=== PATIENT | female | born 1955 | race Caucasian/White ===

== ENCOUNTER → 2024-07-26 | Outpatient (CLI) | payer OTHER, MEDICAID, SELFPAY ==
--- NOTE | 2024-07-26 | XR_ITS ---
Examination: Ribs, left, unilateral 3 views TECHNIQUE: AP LPO GAMA left ribs 3 views Exam date and time: July 26, 2024 1248 hours INDICATIONS: Injury to the left ribs 2 weeks ago with persistent pain Findings: Severe osteopenia No pneumothorax Subacute fracture left eighth rib far anteriorly Impression: Subacute fracture left eighth rib far anteriorly, without significant displacement
--- NOTE | 2024-07-26 | XR_ITS ---
Examination: PA lateral chest 2 views TECHNIQUE: Upright PA lateral chest 2 views Exam date and time: July 26, 2024 1252 hours INDICATIONS: Left-sided rib pain post injury 2 weeks ago FINDINGS: Mild enlargement cardiac contour Accentuation basilar bronchovascular markings No pneumothorax Severe osteopenia No displaced rib fractures Severe compression, osteoporotic, chronic upper dorsal vertebral body with kyphoplasty and moderate adjacent osteoporotic compression vertebral body more caudad No acute thoracic fracture IMPRESSION: No pneumothorax or pulmonary contusion Ribs grossly intact
== END | disposition home or self-care (01) ==
LOC: CDIM 12:14
PROVIDERS: PCP Family Medicine; Referring Provider Family Medicine; Visit Provider Family Medicine
DX: S22.32XA Fracture of one rib, left side, initial encounter for closed fracture (principal); X58.XXXA Exposure to other specified factors, initial encounter
CPT/HCPCS: 71046; 71100

== ENCOUNTER 2024-07-31 14:49 | Inpatient (IN) | payer OTHER, MEDICAID, MEDICARE, SELFPAY ==
[2024-07-31 15:31] VITALS: BP 161/92; PULSE 76; RESP 24; TEMP 37; O2SAT 98; BMI 28.4
--- NOTE | 2024-07-31 15:41 | EKG_ITS ---
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: : 1955 Requested By: Javed Oreilly Order Number: [id number] Reading MD: Javed Oreilly Measurements Intervals [place] Rate: 75 P: -70 SC: 111 QRS: 81 QRSD: 90 T: 50 QT: 423 QTc: 472 Interpretive Statements JUNCTIONAL RHYTHM WITH FREQUENT VENTRICULAR PREMATURE COMPLEXES POSSIBLE RIGHT VENTRICULAR CONDUCTION DELAY [RSR (QR) IN V1/V2] MINIMAL ST DEPRESSION [0.025+ mV ST DEPRESSION] ABNORMAL RHYTHM ECG Compared to ECG 05/22/2024 15:22:03 Junctional rhythm now present Ventricular premature complex(es) now present Sinus rhythm no longer present ST (T wave) deviation still present /store/S0/[id number]/[id number].pdf
--- NOTE | 2024-07-31 15:41 | XR_ITS ---
Examination: Abdomen sonogram, Limited Date and time of exam: July 31, 2024 1600 hrs. Indications: Onset right upper abdominal pain beginning last week Technique: Real-time barr scale transabdominal sonographic images of the upper abdomen obtained. Findings: Negative for gallstones Gallbladder wall 0.43 cm no edema Common bile duct 0.3 cm Pancreatic head 3.0 cm Liver 14.3 cm fatty infiltration no focal liver lesions Normal hepatopedal portal venous flow Patent IVC Impression: Negative for cholelithiasis Gallbladder wall is thickened 0.43 cm, consider HIDA scan or MRCP follow-up to exclude cholecystitis Normal common bile duct Liver normal size, fatty liver
--- NOTE | 2024-07-31 15:42 | PD.EDRME ---
Rapid Medical Screening Exam RME Arrival date/time: 07/31/24 14:49 68-year-old female reports with complaints of epigastric abdominal pain Chief Complaint: Abdominal Pain Time Seen by Provider: 07/31/24 15:39 Vital signs: Vital Signs Temperature 98.6 F 07/31/24 15:31 Pulse Rate 76 07/31/24 15:31 Respiratory Rate 24 H 07/31/24 15:31 Blood Pressure 161/92 H 07/31/24 15:31 Pulse Oximetry (%) 98 07/31/24 15:31 Oxygen Delivery Method Room Air 07/31/24 15:31
[2024-07-31 15:55] LABS: Basophils % (Auto) 0 % (0-2.5); Eosinophils # (Auto) 0.1 Thou/mm3 (0.0-0.5); Eosinophils % (Auto) 1 % (0-10); Hematocrit 38.8 % (36.0-46.0); Immature Granulocytes % (Auto) 0 % (0-0); Immature Granulocytes Auto 0.03 Thou/mm3 (0.00-0.00); Lymphocytes # (Auto) 2.2 Thou/mm3 (1.0-4.8); Lymphocytes % (Auto) 20 % (10-50); Mean Corpuscular HGB Conc 33.5 g/dl (31.0-37.0); Mean Corpuscular Hemoglobin 26.4 pg (25.0-35.0); Mean Corpuscular Volume 79 fL (80-100); Monocytes # (Auto) 0.9 Thou/mm3 (0.0-0.8); Monocytes % (Auto) 8 % (0-12); Neutrophils # (Auto) 8.1 Thou/mm3 (1.8-7.7); Neutrophils % (Auto) 71 % (37-80); Nucleated Red Blood Cell % 0 /100 WBC (0); Platelet Count 371 Thou/mm3 (140-440); RDW Standard Deviation 41.1 fL (36.4-46.3); Red Blood Count 4.92 Miln/mm3 (4.00-5.20); White Blood Count 11.4 Thou/mm3 (3.6-11.0)
[2024-07-31 16:15] LABS: Collection Type, Urine Clean Catch
[2024-07-31 16:21] LABS: Alanine Aminotransferase 17 U/L (10-49); Albumin, Serum 4.6 gm/dL (3.4-4.8); Albumin/Globulin Ratio 2.2 (1.2-2.2); Alkaline Phosphatase 150 U/L (46-116); Anion Gap 6 (7-16); Aspartate Amino Transferase 22 U/L (0-34); BUN/Creatinine Ratio 9 Ratio (12-20); Bilirubin,Total 0.5 mg/dL (0.3-1.2); Blood Urea Nitrogen 13 mg/dL (9-23); Calcium 9.3 mg/dL (8.3-10.6); Calcium (Corrected) 9.3 mg/dL (8.5-10.1); Carbon Dioxide 29.2 mMol/L (20.0-31.0); Chloride 84 mMol/L (98-107); Creatinine (Component) 1.4 mg/dL (0.6-1.3); Globulin 2.1 gm/dL (2.3-3.5); Glucose 106 mg/dL (74-106); Lipase 44 U/L (12-53); Osmolality,Calculated 240 (275-295); Potassium 4.2 mMol/L (3.4-5.1); Total Protein 6.7 gm/dL (5.7-8.2); eGFR 41 See Note
[2024-07-31 16:23] LABS: Sodium 119 mMol/L (136-145)
[2024-07-31 16:45] LABS: Bacteria,Urine 3+; Bilirubin,Urine Negative (Negative); Blood,Urine 2+ (Negative); Clarity,Urine Turbid (Clear/Hazy); Color,Urine Yellow (Lt Yel-Yel); Glucose, Urine Negative (Negative); Ketones,Urine Negative (Negative); Leukocyte Esterase,Urine Positive (Negative); Nitrite,Urine Negative (Negative); PH,Urine 6.5 (5.0-7.0); Protein,Urine Trace (Neg - Trace); RBC,Urine 7 /hpf (0-3); Specific Gravity,Urine 1.012 (1.001-1.035); Squamous Epithelial Cell,Urine 5 /hpf (0-5); Transitional Epi Cells,Urine < 1 /hpf (0-5); Urobilinogen,Urine Negative mg/dL (0.0-1.0); WBC,Urine 40 /hpf (0-5)
[2024-07-31 16:46] LABS: Culture Indicated,Urine Yes
--- NOTE | 2024-07-31 17:03 | XR_ITS ---
Examination: CT abdomen and pelvis without contrast. Coronal 3-D reconstructions. Sagittal 2-D reconstructions. Date and time of exam:July 31, 2024 1713 hrs. Indications: Upper abdominal pain beginning one week ago CTDI: vol (mGy): 9.15 DLP: (mGycm): 442 Technique: Axial images of the abdomen have been obtained, 3 mm slice thickness Intravenous contrast material has not been administered. Low dose protocols were performed. One or more of the following dose reduction techniques were used; automated exposure control, adjustment of the mA and/or KV according to patient size, use of iterative reconstruction technique. Findings: Retrocardiac gastric hernia Liver mildly irregular in contour no focal liver lesions No gallstones Spleen not enlarged No pancreatic mass Minimal nodular thickening left adrenal gland Aorta normal size 2 mm right renal calculus Lower pole 7 cm right renal cyst Normal appendix Infrarenal abdominal aortic aneurysm, AP dimension 3.9 cm mediolateral dimension 4.1 cm cephalad caudad dimension 7.2 cm Infraumbilical left pelvic wall hernia defect, 4 cm, containing small bowel, no definite incarcerated bowel Right infraumbilical hernia defect, 3.4 cm, containing colon no incarcerated bowel Urinary bladder intact 9 mm calcification consistent with calculus in the urinary bladder, sagittal image 98 coronal image 63 Advanced degenerative disc disease L4-L5 Impression: Primary hepatocellular disease 2 mm right renal calculus 7 cm right renal cyst Improving abdominal aortic aneurysm, AP dimension 3.9 cm medial lateral dimension 4.1 cm cephalocaudad dimension 7.2 cm Infraumbilical left hernia containing small bowel and right hernia containing colon but no incarcerated bowel 9 mm calcification consistent with calculus in the urinary bladder
--- NOTE | 2024-07-31 17:03 | EDNOTE_ITS ---
ED General RME/HPI General Chief complaint: Abdominal Pain Stated complaint: UPPER ABDOMINAL PAIN Time Seen by Provider: 07/31/24 15:39 Arrival date/time: 07/31/24 14:49 CC: Upper abdominal pain HPI ongoing for 1 week with progressive increase in severity day and night patient states she has not been eating for the past several days because the site of food makes her sick. Patient denies diarrhea constipation or chest pain. Patient is uncomfortable on the bed writhing in pain. Pain is an 8 to a 9 on a 10 scale. No active vomiting at the time of the exam. RME / HPI RME / HPI narrative: 07/31/24 14:49 68-year-old female reports with complaints of epigastric abdominal pain Related Data Home Medications ?Medication ?Instructions ?Recorded ?Confirmed bupropion HCl 75 mg tablet 75 mg PO TID 01/10/20 05/25/24 ursodiol 500 mg tablet 250 mg PO TID 01/10/20 05/25/24 pantoprazole 40 mg tablet,delayed 40 mg PO QDAY 03/06/20 05/25/24 release albuterol sulfate 90 mcg/actuation 1 mcg inhalation TID PRN Shortness 10/14/23 05/25/24 aerosol inhaler Of Breath Or Wheezing calcium 600 mg (as carbonate)-vit 1 tab PO QAM 10/14/23 05/25/24 D3 20 mcg (800 unit) chewable tablet (Caltrate plus D) fluticasone fur. 200 mcg-umeclid 1 inh inhalation QDAY 10/14/23 05/25/24 62.5 mcg-vilant 25 mcg inhalat.powder (Trelegy Ellipta) lisinopril 5 mg tablet 5 mg PO QDAY 10/14/23 05/25/24 mirabegron 50 mg tablet,extended 50 mg PO QDAY 10/14/23 05/25/24 release 24 hr (Myrbetriq) apixaban 5 mg tablet (Eliquis) 5 mg PO BID 01/26/24 05/25/24 aspirin 81 mg tablet,delayed 81 mg PO QDAY 01/26/24 05/25/24 release diltiazem HCl 120 mg 120 mg PO QDAY 01/26/24 05/25/24 capsule,extended release 12 hr metoprolol succinate 25 mg 25 mg PO TID 01/26/24 05/25/24 tablet,extended release 24 hr alendronate 70 mg tablet 70 mg PO QWEEK 05/25/24 05/25/24 cetirizine 10 mg tablet 10 mg PO QDAY 05/25/24 05/25/24 furosemide 20 mg tablet 20 mg PO QDAY 05/25/24 05/25/24 Previous Rx's ?Medication ?Instructions ?Recorded potassium chloride 20 mEq oral 20 meq PO QDAY #5 ea 05/22/24 packet Allergies Allergy/AdvReac Type Severity Reaction Status Date / Time No Known Allergies Allergy Verified 07/31/24 14:53 Review of Systems Review of Systems Narrative Review of Systems: GEN: No fever, no chills, no weight loss EYES: No discharge, no visual changes, no pain HEENT: No ear pain, no congestion, no sore throat PULM: No shortness of breath, no cough, no congestion CV: No chest pain, no dyspnea on exertion, no palpitations GI: No nausea, no vomiting, no diarrhea, + pain, no constipation : No frequency, no urgency, no dysuria MUSC/SKEL: No joint pain, no back pain SKIN: No rash PSYCH: No hallucinations, no depression HEME/LYMPH: No easy bleeding or bruising tendencies NEURO: No weakness, no headache ED Exam Narrative Physical exam: [General: In moderate discomfort but not in any acute distress Head normocephalic HEENT: Eyes pupils are PERRLA EOMs are intact all other subsystems of HEENT are within acceptable limits Neck is supple nontender no JVD no edema Chest equal chest rise nontender to palpation Respiratory: Clear to auscultation no wheezes crackles or rubs CV: Rate rhythm is regular no murmurs rubs or clicks Abdomen reflexive guarding with all palpation of the epigastric right upper and left upper quadrants of the abdomen, no lower abdomen pain with palpation. Back: No CVA tenderness no spinous process tenderness from cervical spine thoracic and lumbar spine Skin: Intact no petechiae rash induration ulceration or crepitus Extremities: Moving all extremity against resistance cap refill less than 2 seconds neurosensory intact Neuro: Awake alert oriented x3 Glascow coma 15 no focal deficits] Course Quality Measures none Orders Category Date Time Status EKG (ED ONLY) *Do not use* NOW Care 07/31/24 15:42 Completed Saline [Insert IV] NOW Care 07/31/24 17:[address] abdomen pelvis wo con Stat Exams 07/31/24 17:03 Completed EKG (ED Only) Stat Exams 07/31/24 15:41 Draft US abdomen limited Stat Exams 07/31/24 15:41 Completed CBC Stat Lab 07/31/24 15:48 Completed CMP [Comprehensive Metabolic Panel] Stat Lab 07/31/24 15:48 Completed Lipase Stat Lab 07/31/24 15:48 Completed UA, C/S IF [Urinalysis, C/S if Indicated] Stat Lab 07/31/24 15:57 Completed Urine Culture Stat Lab 07/31/24 15:57 Received Ketorolac Inj [Toradol Inj] Med 07/31/24 15:41 Discontinued 30 mg IM X1 ONE Morphine Inj Med 07/31/24 17:15 Discontinued 4 mg IVP X1 ONE Ondansetron Inj [Zofran Inj] Med 07/31/24 17:01 Discontinued 4 mg IV X1 ONE Sodium Chloride 0.9% 1000 ml [Ns] 1,000 ml Med 07/31/24 17:02 Active IV 45 mls/hr Vital Signs Vital signs: Vital Signs Temperature 98.6 F 07/31/24 15:31 Pulse Rate 76 07/31/24 15:31 Respiratory Rate 24 H 07/31/24 15:31 Blood Pressure 161/92 H 07/31/24 15:31 Pulse Oximetry (%) 98 07/31/24 15:31 Oxygen Delivery Method Room Air 07/31/24 15:31 [facility] Patient data External records reviewed:: [facility] previous records Clinical information provided by:: patient Social determinants that could affect healthcare access:: none Patient has the following chronic illnesses:: Hyponatremia UTI hypertension on blood thinners How is presenting disease/condition affected by chronic disease/condition?: u neffected by Evaluation data The following diagnostics were reviewed and interpreted by me:: lab results, radiology exam(s) and EKG tracing(s) Lab and/or radiology exams considered but not ordered:: EKG performed at 1550 shows a ventricular rate of 75 OK interval 111 QRS of 90 QTc of 451 this junctional rhythm. No significant changes from an old EKG from April 2024. CBC shows no acute leukocytosis anemia thrombocytopenia CMP shows a sodium 119 potassium of 4.2 chloride of 84 CO2 of 29.2 BUN of 13 creatinine 1.4 glucose of 106 there is a gap of 6 alk phos of 150 no other transaminitis or T. bili elevation. Lipase 44 Ultrasound of the gallbladder shows a mild gallbladder wall thickening but there is no significant transaminitis or T. bili elevation. Interpretation Summary: Patient's case discussed with Dr. Jones who agrees to accept the patient for mission for hypokalemia. Patient is in agreement with this plan Medications Medications considered but not ordered:: None Medication administrations:: Medication Administration History Sodium Chloride (Ns) 1,000 mls @ 45 mls/hr IV .[id number] CANDACE Stop: 08/01/24 15:15 Last Admin: 07/31/24 17:24 Dose: 45 mls/hr Documented By: TM Discontinued Medications Ketorolac Tromethamine (Ketorolac Inj 60 Mg/2 Ml Vial) 30 mg IM X1 ONE Stop: 07/31/24 15:42 Last Admin: 07/31/24 17:23 Dose: Not Given Documented By: TM Non-Admin Reason: Cancelled by Provider Morphine Sulfate (Morphine Sulf Inj 10 Mg/Ml Vial) 4 mg IVP X1 ONE Stop: 07/31/24 17:16 Last Admin: 07/31/24 17:24 Dose: 4 mg Documented By: FRANKY Comments: 75 HR 124/71 BP Ondansetron HCl (Ondansetron Inj 2 Mg/Ml Inj 2 Ml) 4 mg IV X1 ONE; Protocol Stop: 07/31/24 17:02 Last Admin: 07/31/24 17:23 Dose: 4 mg Documented By: TM None Consultations Consultation(s) initiated? (list below): No Diagnosis Differential Diagnosis ED Complaint MDM: Hyponatremia electrolyte imbalances renal impairment Most likely diagnosis given after review of the tests above:: Hyponatremia Admission Indicated Admission indicated?: indicated Explain why admission is indicated or not indicated:: Further medical management Admission Request Was there a request for admission?: No Disposition Plan Disposition Plan: Admit Medical Decision Making Differential Diagnosis Differential Diagnosis: Hyponatremia electrolyte imbalances renal impairment Lab Data 07/31/24 15:48 07/31/24 15:48 Labs: Lab Results 07/31/24 07/31/24 Range/Units 15:48 15:57 WBC 11.4 H (3.6-11.0) Thou/mm3 RBC 4.92 (4.00-5.20) Miln/mm3 Hgb 13.0 (12.0-16.0) g/dL Hct 38.8 (36.0-46.0) % MCV 79 L (80-100) fL MCH 26.4 (25.0-35.0) pg MCHC 33.5 (31.0-37.0) g/dl RDW Std Deviation 41.1 (36.4-46.3) fL Plt Count 371 (140-440) Thou/mm3 Neut % (Auto) 71 (37-80) % Lymph % (Auto) 20 (10-50) % Sebastian % (Auto) 8 (0-12) % Eos % (Auto) 1 (0-10) % Baso % (Auto) 0 (0-2.5) % Neut # (Auto) 8.1 H (1.8-7.7) Thou/mm3 Lymph # (Auto) 2.2 (1.0-4.8) Thou/mm3 Sebastian # (Auto) 0.9 H (0.0-0.8) Thou/mm3 Eos # (Auto) 0.1 (0.0-0.5) Thou/mm3 Baso # (Auto) 0.0 (0.0-0.2) Thou/mm3 Immature Gran # (Auto) 0.03 H (0.00-0.00) Thou/mm3 Absolute Nucleated RBC 0.00 (0.00-0.00) Thou/mm3 Immature Gran % 0 (0-0) % Nucleated RBC % 0 (0) /100 WBC Sodium 119 L* (136-145) mMol/L Potassium 4.2 (3.4-5.1) mMol/L Chloride 84 L (98-107) mMol/L Carbon Dioxide 29.2 (20.0-31.0) mMol/L Anion Gap 6 L (7-16) BUN 13 (9-23) mg/dL Creatinine 1.4 H (0.6-1.3) mg/dL Estim Creat Clear Calc 41.0 L (>60) mL/min eGFR 41 L (60 - ) See Note BUN/Creatinine Ratio 9 L (12-20) Ratio Glucose 106 (74-106) mg/dL Calculated Osmolality 240 L (275-295) Calcium 9.3 (8.3-10.6) mg/dL Corrected Calcium 9.3 (8.5-10.1) mg/dL Total Bilirubin 0.5 (0.3-1.2) mg/dL AST 22 (0-34) U/L ALT 17 (10-49) U/L Alkaline Phosphatase 150 H (46-116) U/L Total Protein 6.7 (5.7-8.2) gm/dL Albumin 4.6 (3.4-4.8) gm/dL Globulin 2.1 L (2.3-3.5) gm/dL Albumin/Globulin Ratio 2.2 (1.2-2.2) Lipase 44 (12-53) U/L Ur Collection Type Clean Catch Urine Color Yellow (Lt Yel-Yel) Urine Clarity Turbid A (Clear/Hazy) Urine pH 6.5 (5.0-7.0) Ur Specific [place] 1.012 (1.001-1.035) Urine Protein Trace (Neg - Trace) Urine Glucose (UA) Negative (Negative) Urine Ketones Negative (Negative) Urine Blood 2+ A (Negative) Urine Nitrite Negative (Negative) Urine Bilirubin Negative (Negative) Urine Urobilinogen (Auto) Negative (0.0-1.0) mg/dL Ur Leukocyte Esterase Positive (Negative) Urine RBC 7 H (0-3) /hpf Urine WBC 40 H (0-5) /hpf Ur Squamous Epith Cells 5 (0-5) /hpf Ur Transition Epith Cell < 1 (0-5) /hpf Urine Bacteria 3+ A (None) Ur Culture Indicated? Yes Discharge Plan Plan Patient Disposition: Other Care w/in Hosp ([facility]) Patient condition on transfer: Stable Prescriptions/Referrals Prescriptions/Med Rec: No Action ursodiol 500 mg tablet 250 mg PO TID bupropion HCl 75 mg tablet 75 mg PO TID Rx Instructions: administer 6 hours apart Eliquis 5 mg tablet 5 mg PO BID metoprolol succinate 25 mg tablet extended release 24 hr 25 mg PO TID diltiazem HCl 120 mg capsule,extended release 12 hr 120 mg PO QDAY aspirin 81 mg tablet,delayed release (DR/EC) 81 mg PO QDAY pantoprazole 40 mg Tablet,Delayed Release (Dr/Ec) 40 mg PO QDAY potassium chloride 20 mEq packet 20 meq PO QDAY Qty: 5 0RF mirabegron [Myrbetriq] 50 mg tablet extended release 24 hr 50 mg PO QDAY Trelegy Ellipta 200-62.5-25 mcg blister with device 1 inh INHALATION QDAY Caltrate 600 plus D 600 mg-20 mcg (800 unit) Tablet,Chewable 1 tab PO QAM lisinopril 5 mg tablet 5 mg PO QDAY albuterol sulfate 90 mcg/actuation HFA aerosol inhaler 1 mcg INHALATION TID PRN (Reason: Shortness Of Breath Or Wheezing) cetirizine 10 mg tablet 10 mg PO QDAY alendronate 70 mg tablet 70 mg PO QWEEK furosemide 20 mg tablet 20 mg PO QDAY Referrals: Adama Pugh [Primary Care Provider] - In 1 week Problem List Clinical Impression: Hyponatremia Patient/Caregiver Discharge Instructions Print Language: Com[place]an Stand Alone Forms: Wanda Award Info., Patient Portal Info Letter PA/DRUM SANDER OFFBEARER Supervising Physician PA/DRUM SANDER OFFBEARER Supervising Physician: Dell Gill ENP
[2024-07-31] MEDS: ONDANSETRON INJ 2 MG/ML INJ 2 ML 4 MG IV (17:23)
[2024-07-31] MEDS: SODIUM CHLORIDE 0.9% 1000 ML 1,000 ML 45 ML IV (17:24)
[2024-07-31] MEDS: MORPHINE SULF INJ 10 MG/ML VIAL 4 MG IVP (17:24)
[2024-07-31 18:37] VITALS: BP 112/58; PULSE 65; RESP 16; TEMP 36.8; O2SAT 96
[2024-07-31 19:57] VITALS: BP 99/47; PULSE 64; RESP 17; O2SAT 96
--- NOTE | 2024-07-31 20:45 | XR_ITS ---
Examination: AP chest single view Technique one AP portable upright chest single view Exam date and time: July [id number] hrs. Comparison July 26, 2024 Indications: Admission chest x-ray, upper abdominal pain one week, abdominal aortic aneurysm Findings: Mild prominence left ventricle Significant vascular congestion. Septal early edema at the lung bases Prominent osteopenia Impression: Early CHF
[2024-07-31] MEDS: SODIUM CHLORIDE 0.9% 1000 ML 1,000 ML 75 ML IV (20:46)
[2024-07-31] MEDS: cefTRIAXone/D5w 1gm IV premix 50 ML IV (21:17)
[2024-07-31] MEDS: HEPARIN SOD INJ 5000 UNIT/ML VIAL SC (21:19)
[2024-07-31 21:54] LABS: Anion Gap 6 (7-16); BUN/Creatinine Ratio 11 Ratio (12-20); Blood Urea Nitrogen 14 mg/dL (9-23); Calcium 9.3 mg/dL (8.3-10.6); Carbon Dioxide 29.5 mMol/L (20.0-31.0); Chloride 87 mMol/L (98-107); Creatinine (Component) 1.3 mg/dL (0.6-1.3); Estimated Creatinine Clearance 44.1 mL/min (>60); Glucose 113 mg/dL (74-106); Magnesium 1.7 mg/dL (1.6-2.6); Osmolality,Calculated 247 (275-295); Phosphorous 4.2 mg/dL (2.4-5.1); Potassium 4.2 mMol/L (3.4-5.1); Sodium 122 mMol/L (136-145); eGFR 45 See Note
--- NOTE | 2024-07-31 21:55 | ESHP_ITS ---
Documentation for date of: 07/31/24 HPI History of Present Illness Chief complaint: Abdominal Pain History of present illness: 68-year-old female with past medical history of COPD not on home oxygen, hypertension, hyperlipidemia, A-fib on Eliquis presenting to the ED on 07/31 with generalized abdominal pain and some urinary symptoms. Patient states that symptoms presented about 1 week ago and have progressively worsened but she denies having any fever/chills. Patient also denies having any concerning symptoms such as chest pain/tightness, palpitations, shortness of breath, vomiting/diarrhea, melena, hematochezia or hematemesis. Patient states that for the last several days she has had poor oral intake and that the site of food has caused her to feel slightly nauseated but she has not vomited. Patient denies having any weight loss; currently lives by herself as her about 13 years ago from cancer. Patient takes care of her 2 pets, a dog and a cat but she has not been able to do so because she has been very tired. Patient also states that in the past couple days she has had some pain/burning sensation while urinating. 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 In the ED, patient presented hypertensive (161/92, heart rate 76, respiratory 24, afebrile satting 98 on room air but increased to 2 L nasal cannula as her oxygenation was slightly dipping to 88-90. Pertinent lab findings included WBC 11.4, sodium 119, chloride 87, creatinine 1.4, BUN 13, magnesium 1.7, alk phos 150. Urinalysis shows positive leukocyte esterase, pyuria and bacteriuria. Gallbladder ultrasound shows thickening of the wall but no cholelithiasis, more common bile duct, EKG shows junctional rhythm with frequent PVC but no concerning ST changes. CT abdomen pelvis shows primary hepatocellular disease, 2 mm right renal calculi, subcentimeter right renal cyst, abdominal aortic aneurysm with AP dimension 3.9 cm, infraumbilical left hernia, 9 mm calcification within urinary bladder. Chest x-ray shows signs of early congestive heart failure with prominent vascular congestion. Patient will be admitted for treatment of acute kidney injury, hyponatremia and urinary tract infection; nephrology consulted and appreciate recommendations. Exam Vital Signs Temp Pulse Resp BP Pulse Ox O2 Del Method O2 Flow Rate 98.2 F 64 17 99/47 L 96 Nasal Cannula 2 07/31/24 18:37 07/31/24 19:57 07/31/24 19:57 07/31/24 19:57 07/31/24 19:57 07/31/24 19:57 07/31/24 19:57 Narrative Exam Physical Exam: GENERAL: Awake on 2-3L NC, has dentures, answers questions appropriately, appears older than stated age. HEENT: NC/AT. Moist mucosa. PERRLA/EOMI. CARDIO: Heart RRR, no obvious murmurs, no JVD. PULM: No coughing or visible SOB. Lungs CTA B/L. GI: Abdomen soft, tender to palpation on all four quadrants but moreso on RUQ and epigastric region, guarding evident, hypoactive bowel sounds SKIN/MSK/EXT: No wounds/discoloration/rashes/edema/amputations. +Pedal pulses present B/L. 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 Results: Labs 07/31/24 15:48 07/31/24 21:08 Labs: Short CBC 07/31/24 Range/Units 15:48 WBC 11.4 H (3.6-11.0) Thou/mm3 Hgb 13.0 (12.0-16.0) g/dL Hct 38.8 (36.0-46.0) % Plt Count 371 (140-440) Thou/mm3 BMP 07/31/24 07/31/24 15:48 21:08 Sodium 119 L* 122 L Potassium 4.2 4.2 Chloride 84 L 87 L Carbon Dioxide 29.2 29.5 BUN 13 14 Creatinine 1.4 H 1.3 Glucose 106 113 H Calcium 9.3 9.3 Liver Function 07/31/24 Range/Units 15:48 Total Bilirubin 0.5 (0.3-1.2) mg/dL AST 22 (0-34) U/L ALT 17 (10-49) U/L Alkaline Phosphatase 150 H (46-116) U/L Albumin 4.6 (3.4-4.8) gm/dL Urine 07/31/24 Range/Units 15:57 Urine Color Yellow (Lt Yel-Yel) Urine Clarity Turbid A (Clear/Hazy) Urine pH 6.5 (5.0-7.0) Ur Specific [place] 1.012 (1.001-1.035) Urine Protein Trace (Neg - Trace) Urine Glucose (UA) Negative (Negative) Quality Measures Quality Measures none Advance care planning discussed with:: patient Medications Home Medications and Allergies Home Medications ?Medication ?Instructions ?Recorded ?Confirmed ?Type bupropion HCl 75 mg tablet 75 mg PO TID 01/10/20 05/25/24 History ursodiol 500 mg tablet 250 mg PO TID 01/10/20 05/25/24 History pantoprazole 40 mg tablet,delayed 40 mg PO QDAY 03/06/20 05/25/24 History release albuterol sulfate 90 mcg/actuation 1 mcg inhalation TID PRN Shortness 10/14/23 05/25/24 History aerosol inhaler Of Breath Or Wheezing calcium 600 mg (as carbonate)-vit 1 tab PO QAM 10/14/23 05/25/24 History D3 20 mcg (800 unit) chewable tablet (Caltrate plus D) fluticasone fur. 200 mcg-umeclid 1 inh inhalation QDAY 10/14/23 05/25/24 History 62.5 mcg-vilant 25 mcg inhalat.powder (Trelegy Ellipta) lisinopril 5 mg tablet 5 mg PO QDAY 10/14/23 05/25/24 History mirabegron 50 mg tablet,extended 50 mg PO QDAY 10/14/23 05/25/24 History release 24 hr (Myrbetriq) apixaban 5 mg tablet (Eliquis) 5 mg PO BID 01/26/24 05/25/24 History aspirin 81 mg tablet,delayed 81 mg PO QDAY 01/26/24 05/25/24 History release diltiazem HCl 120 mg 120 mg PO QDAY 01/26/24 05/25/24 History capsule,extended release 12 hr metoprolol succinate 25 mg 25 mg PO TID 01/26/24 05/25/24 History tablet,extended release 24 hr alendronate 70 mg tablet 70 mg PO QWEEK 05/25/24 05/25/24 History cetirizine 10 mg tablet 10 mg PO QDAY 05/25/24 05/25/24 History furosemide 20 mg tablet 20 mg PO QDAY 05/25/24 05/25/24 History Allergies Allergy/AdvReac Type Severity Reaction Status Date / Time No Known Allergies Allergy Verified 07/31/24 14:53 Visit Medications Acetaminophen (Acetaminophen 325 Mg Tablet) 650 mg PO Q6H PRN PRN Reason: Fever >101.5 Stop: 08/30/24 20:44 Heparin Sodium (Porcine) (Heparin Sod Inj 5000 Unit/Ml Vial) 5,000 unit SC Q8HR [facility] Stop: 08/14/24 21:59 Last Admin: 07/31/24 21:19 Dose: 5,000 unit Sodium Chloride (Ns) 1,000 mls @ 75 mls/hr IV .[id number] ONE Stop: 08/01/24 10:04 Last Admin: 07/31/24 20:46 Dose: 75 mls/hr Ceftriaxone Sodium/Dextrose (Rocephin/D5w 1gm Iv Premix) 50 mls @ 100 mls/hr IV QDAY [facility] Stop: 08/07/24 20:49 Nicotine (Nicotine Patch 7 Mg/24 Hr Patch.Td24) 7 mg TOP QDAY [facility] Stop: 08/31/24 08:59 Discontinued Medications Sodium Chloride (Ns) 1,000 mls @ 45 mls/hr IV .[id number] [facility] Stop: 08/01/24 15:15 Last Infusion: 07/31/24 20:45 Dose: 0 mls/hr Ceftriaxone Sodium/Dextrose (Rocephin/D5w 1gm Iv Premix) 50 mls @ 100 mls/hr IV X1 ONE Stop: 07/31/24 21:44 Last Admin: 07/31/24 21:17 Dose: 100 mls/hr Ketorolac Tromethamine (Ketorolac Inj 60 Mg/2 Ml Vial) 30 mg IM X1 ONE Stop: 07/31/24 15:42 Last Admin: 07/31/24 17:23 Dose: Not Given Morphine Sulfate (Morphine Sulf Inj 10 Mg/Ml Vial) 4 mg IVP X1 ONE Stop: 07/31/24 17:16 Last Admin: 07/31/24 17:24 Dose: 4 mg Ondansetron HCl (Ondansetron Inj 2 Mg/Ml Inj 2 Ml) 4 mg IV X1 ONE; Protocol Stop: 07/31/24 17:02 Last Admin: 07/31/24 17:23 Dose: 4 mg Assessment & Plan Plan 68-year-old female with past medical history of COPD not on home oxygen, hypertension, hyperlipidemia, A-fib on Eliquis presenting on 07/31 with generalized abdominal pain and some urinary symptoms will be admitted for treatment of acute kidney injury, hyponatremia and urinary tract infection; nephrology consulted and appreciate recommendations. #Hyponatremia Serum osm of 255; hypotonic and likely hypovolemic Patient apparently has been having poor p.o. intake Per chart review; patient does have history of excessive alcohol use, but currently states that she only drinks 1 beer a week Presenting with Na of 119 ==> 122 In ED, started on NS 45cc/hr Plan: Urine osm ordered BMP Q4h IVF resuscitation; NS @ 75cc/hr for 1 bag Nephrology consulted; appreciate recs #KAMALJIT, likely prerenal azotemia Poor PO intake as stated above Patient's baseline Cr of 0.8/0.9 Currently presenting with Cr of 1.4 Plan: Treating UTI IVF as above Avoid nephrotoxic agents Replete lytes Follow-up with morning labs #UTI #Mild Leukocytosis Patient has symptoms of pain/burning with urination; no fever/chills WBC of 11.4 U/A shows +LE, pyuria and bacteruria Plan: IV abx; ceftriaxone Follow-up with morning labs urine cultures #Possible Cholecystitis #Primary Hepatocellular Disease #2mm right renal calculi #7cm right renal cyst #Abdominal Aortic Aneurysm, 3.9cm #Infraumbilical left hernia #9mm calcification within urinary bladder CT findings as outlined in report U/S read suggests acquiring a HIDA or MRCP; but there is no elevated LFT, Tbili Follow-up on AAA with repeat imaging outpatient Follow-up on renal findings outpatient #Tobacco Dependence Patient has >40pack year history Plan: Started on nicotine patch #COPD #Atrial Fibrilation, rate controlled #Hypertension #Hyperlipidemia Ordered ECHO as CXR showed mild CHF; hx of Afib and risk factors for HF evident Chronic medical problems; will hold blood pressure medications as bp soft Eliquis PO Holding Buproprion Hospital Management: Lines - PIV Bowel - Senna Diet -Clear liquid GI prophylaxis - not needed DVT prophylaxis - Eliquis Dispo - tr/ UTI, hyponatremia and KAMALJIT Code - Full Patient seen and examined with attending Dr. Jones and senior resident Dr. Migdalia Villaseñor, PGY-1 Attending Provider Attestation/Addendum Pt was evaluated and plan formulated together with the housestaff team. I have reviewed the residents note above and agree with most of its content. Please refer to the residents note for additional details. The goal of initial therapy is to raise the serum sodium concentration by 4 to 6 mEq/L in a 24-hour period. Monitor BMP Q4H.
[2024-07-31 22:16] VITALS: BP 113/58; PULSE 60; RESP 18
--- NOTE | 2024-07-31 22:25 | ECHO_ITS ---
Transthoracic Echo Report Ht (in): 66 Wt (lb): 176 Exam Location: [facility] Status: Inpatient Partner Management Consultant: Leslee Billings Indications: Procedure Performed: BP: 120 / 53 HR: 84 Rhythm: Sinus Technical Quality: Technically difficult study MEASUREMENTS (Male / Female) Normal Values 2D ECHO LV Diastolic Diameter PLAX 4.8 cm 4.2 - 5.9 / 3.9 - 5.3 cm LV Systolic Diameter PLAX 2.9 cm IVS Diastolic Thickness 0.9 cm 0.6 - 1.0 / 0.6 - 0.9 cm LVPW Diastolic Thickness 0.9 cm 0.6 - 1.0 / 0.6 - 0.9 cm LV Relative Wall Thickness 0.4 LVOT Diameter 1.7 cm Ascending Aorta Diameter 2.9 cm M-MODE Aortic Root Diameter MM 2.7 cm LA Systolic Diameter MM 4.1 cm LA Ao Ratio MM 1.5 AV Cusp Separation MM 2.0 cm FINDINGS Left Ventricle Normal left ventricular size, wall thickness, systolic function with no obvious regional wall motion abnormalities. The ejection fraction is visually estimated at 60-65%. Right Ventricle The right ventricle is normal in size and systolic function. Left Atrium The left atrium is normal by two-dimensional, color flow and Doppler imaging with no structural abnormalities, no thrombus formation present. Right Atrium The right atrium is normal by two-dimensional imaging, color flow and Doppler imaging with no struct ural abnormalities, no thrombus formation present. Atrial Septum The interatrial septum appears normal with no evidence of a shunt. Aorta The aorta is normal by two-dimensional, color flow and Doppler interrogation. Mitral Valve The mitral valve is normal by two-dimensional, color flow and Doppler interrogation. There is no sig nificant mitral valve regurgitation. Aortic Valve The aortic valve is trileaflet. Mild sclerosis without stenosis. There is mild aortic valve regurgit ation. Tricuspid Valve The tricuspid valve is normal by two-dimensional, color flow and Doppler interrogation. There is tra ce tricuspid valve regurgitation. Pulmonic Valve There is no significant pulmonic valve regurgitation. Vessels The pulmonary artery appears normal. The inferior vena cava pulmonary and hepatic veins appear jeffery l. Pericardium The pericardium is normal by two-dimensional imaging. There is no significant pericardial effusion. CONCLUSIONS Limited study. Patient refuse. Normal LV size and function. Estimated EF 60-65% Normal RV size and function. Mild AI. Mild AV sclerosis. Trace TR. Abdoul Smith (Electronically Signed) Final Date: 02 August 2024 11:04
[2024-08-01 00:08] VITALS: BP 122/81; PULSE 70; RESP 22; TEMP 36.6; O2SAT 97
--- NOTE | 2024-08-01 00:11 | PC.NURSE ---
Report called to July URRUTIA
[2024-08-01] MEDS: Magnesium Sulfate 4 GM Ivpb 4 GM/50 ML BAG IV (01:10)
[2024-08-01 02:33] LABS: Anion Gap 4 (7-16); BUN/Creatinine Ratio 12 Ratio (12-20); Blood Urea Nitrogen 15 mg/dL (9-23); Calcium 9.1 mg/dL (8.3-10.6); Carbon Dioxide 29.5 mMol/L (20.0-31.0); Chloride 90 mMol/L (98-107); Creatinine (Component) 1.3 mg/dL (0.6-1.3); Estimated Creatinine Clearance 44.1 mL/min (>60); Glucose 90 mg/dL (74-106); Osmolality,Calculated 248 (275-295); Potassium 4.2 mMol/L (3.4-5.1); Sodium 123 mMol/L (136-145); eGFR 45 See Note
[2024-08-01] MEDS: ACETAMINOPHEN 325 MG TABLET 650 MG PO (03:22)
[2024-08-01 04:00] VITALS: BP 128/47; PULSE 65; PULSE 76; RESP 18; TEMP 36.3; O2SAT 98
[2024-08-01 04:59] LABS: Basophils % (Auto) 0 % (0-2.5); Eosinophils # (Auto) 0.1 Thou/mm3 (0.0-0.5); Eosinophils % (Auto) 1 % (0-10); Hematocrit 37.3 % (36.0-46.0); Immature Granulocytes % (Auto) 0 % (0-0); Immature Granulocytes Auto 0.03 Thou/mm3 (0.00-0.00); Lymphocytes # (Auto) 2.8 Thou/mm3 (1.0-4.8); Lymphocytes % (Auto) 29 % (10-50); Mean Corpuscular HGB Conc 32.2 g/dl (31.0-37.0); Mean Corpuscular Hemoglobin 26.3 pg (25.0-35.0); Mean Corpuscular Volume 82 fL (80-100); Monocytes # (Auto) 1.1 Thou/mm3 (0.0-0.8); Monocytes % (Auto) 12 % (0-12); Neutrophils # (Auto) 5.8 Thou/mm3 (1.8-7.7); Neutrophils % (Auto) 58 % (37-80); Nucleated Red Blood Cell % 0 /100 WBC (0); Platelet Count 336 Thou/mm3 (140-440); Red Blood Count 4.56 Miln/mm3 (4.00-5.20); White Blood Count 9.9 Thou/mm3 (3.6-11.0)
[2024-08-01 05:12] LABS: Anion Gap 7 (7-16); BUN/Creatinine Ratio 11 Ratio (12-20); Blood Urea Nitrogen 16 mg/dL (9-23); Calcium 9.1 mg/dL (8.3-10.6); Carbon Dioxide 29.2 mMol/L (20.0-31.0); Chloride 86 mMol/L (98-107); Creatinine (Component) 1.4 mg/dL (0.6-1.3); Glucose 93 mg/dL (74-106); Osmolality,Calculated 247 (275-295); Potassium 3.9 mMol/L (3.4-5.1); Sodium 122 mMol/L (136-145); eGFR 41 See Note
[2024-08-01 08:00] VITALS: BP 108/51; PULSE 62; PULSE 65; RESP 18; TEMP 36.4; O2SAT 95
[2024-08-01] MEDS: APIXABAN 2.5 MG TABLET 5 MG PO ×2 (09:06→20:18)
--- NOTE | 2024-08-01 09:09 | PC.SS ---
Patient Jennifer Nugent is a 68 Year old female admitted for Hyponatremia. SS spoke to patient's daughter, July Nugent. She reported she is patient's medical decision maker [phone]. She reports Pt ambulates independently without assistance or DME. Patient is able to complete ADL's independently. Patient's choice of pharmacy is [facility]. At time of discharge patient will discharge back home. DC plan: Home Next of kin: July Nugent, daughter, phone# [phone] PCP: Adama Pugh
[2024-08-01 10:01] LABS: Anion Gap 4 (7-16); BUN/Creatinine Ratio 12 Ratio (12-20); Blood Urea Nitrogen 14 mg/dL (9-23); Calcium 8.5 mg/dL (8.3-10.6); Carbon Dioxide 29.9 mMol/L (20.0-31.0); Chloride 88 mMol/L (98-107); Creatinine (Component) 1.2 mg/dL (0.6-1.3); Estimated Creatinine Clearance 48.8 mL/min (>60); Glucose 99 mg/dL (74-106); Osmolality,Calculated 246 (275-295); Sodium 122 mMol/L (136-145); eGFR 49 See Note
[2024-08-01] MEDS: HYDROcodone/APAP 5/325 TABLET 1 TAB PO ×2 (10:09→20:19)
--- NOTE | 2024-08-01 10:20 | XR_ITS ---
Examination: Retroperitoneal ultrasound, complete Technique: Multiple high resolution grayscale images of the retroperitoneum obtained, including kidneys and bladder. Exam date and time:August 01, 2024 1138 hours INDICATIONS: CT abdomen July 31, 2024 7 cm right renal cyst FINDINGS: Right kidney 12.9 x 5.6 x 5.0 cm renal cortex 1.7 cm Lower pole 6.8 cm cyst Left kidney 11.6 x 5.4 x 5.1 cm cortex 2.3 cm Moderate bilateral renal parenchymal scar formation No hydronephrosis No bladder mass or bladder calculi Bladder prevoid volume 363 cc unable to void IMPRESSION: Moderate bilateral renal parenchymal scar formation Lower pole benign right renal cyst 6.8 cm
--- NOTE | 2024-08-01 10:23 | XR_ITS ---
Examination: HIDA, hepatobiliary radioisotope scan Gallbladder ejection fraction study. Date and time of exam: August 02, 2024 1405 hours INDICATIONS: Abdominal pain beginning July 31, 2024 in the upper abdomen Technique: 6.2 mCi of 99M Hepatolite administered. Serial imaging then obtained from immediate through 60 minutes. 1.7 mcg selective catheter Kinevac administered for gallbladder ejection fraction study. Findings: Radioisotope activity within the liver is reasonably homogenous. Gallbladder, common bile duct small bowel activity noted Impression: Gallbladder activity Gallbladder ejection fraction 24%, normal 35% or greater
[2024-08-01] MEDS: SODIUM CHLORIDE 0.9% 1000 ML 1,000 ML 75 ML IV (10:50)
[2024-08-01 12:00] VITALS: BP 106/64; PULSE 72; PULSE 79; RESP 18; TEMP 36.1; O2SAT 100
[2024-08-01 12:55] LABS: Total Protein 6.2 gm/dL (5.7-8.2)
--- NOTE | 2024-08-01 13:27 | PC.SS ---
Rounding note; Blood cultures pending, Nephrology consult pending.
[2024-08-01 13:41] LABS: Sodium 123 mMol/L (136-145)
[2024-08-01 14:53] LABS: B-Type Natriuretic Peptide 216 pg/mL (0-100)
--- NOTE | 2024-08-01 15:40 | ESPR_ITS ---
<Statement entered by Tony Meeks MD - 08/01/24 18:12> Patient was seen and examined at the bedside. Patient reported that she has a lot of back pain and Robertson sign was positive. Sodium improved. Will continue with IV fluid NS at 75 cc per nephro recs and escalated to diet to regular. We ordered renal ultrasound and HIDA scan. Consulted urology given patient's CT scan abdomen showed stone in the bladder. Continuing IV ceftriaxone pending on urine cultures. N.p.o. after midnight for HIDA scan tomorrow. All labs and orders were reviewed. I saw and examined the patient, and I agree with current management stated by Dr Angelina MD,PGY1. Plan of care was discussed with the attending physician and resident physician. Disclaimer: Despite multiple revisions, due to the dictation software being used, the document bellow may not be free of grammatical errors including phonetic/typographic errors. However, this does not deter from our commitment to providing health care in the patient's best interest in mind. Dr. Constantino MD, PGY 2 Documentation for date of: 08/01/24 Subjective Subjective Interval history: Patient is 67 year old female with past medical history of HTN, HLD, COPD-not on home oxygen, w/ 40+ year tabacoo use, history of dysphagia, hx of major depression, GERD, hiatal hernia, esophageal strictures s/p dilation, hemorroids, and mixed urinary incontinence (on Myrbetriq 50 mg PO daily) w/ previous history of bladder stones (2019) who was admitted for hyponatremia and UTI. Overnight admission, no acute events reported. Patient appear uncomfortable and declined abdominal examined. Appeared frustrated. Denied Chest pain or dyspnea. Exam Vital Signs Temp Pulse Resp BP Pulse Ox O2 Del Method O2 Flow Rate 97.0 F 72 18 106/64 100 Nasal Cannula 4 08/01/24 12:00 08/01/24 12:00 08/01/24 12:00 08/01/24 12:00 08/01/24 12:00 08/01/24 12:00 08/01/24 12:00 Narrative Exam General Appearance: Alert & Oriented X3, well-nourished female who is lying in bed in mild discomfort in position. HEENT: Skull symmetrical and atraumatic. Conjunctivae pale pink and moist. Pupils equal, round, reactive to light and accommodation (PERRL). Cardio: Normal Rate and Rhythm with S1 and S2 heart sounds. No murmurs or extra heart sounds auscultated. No bruits on carotid auscultation. No peripheral edema or cyanosis. Lungs: Symmetric with good expansion. 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 Breath sounds vesicular without crackles, wheezing or rhonchi Abdomen: Diffuse tenderness, Non-distended, Normal Reactive Bowel Sounds Neuro: Alert, cooperative, oriented to person, place, and time. Speech clear. CN grossly intact. Upper motor strength 5/5 and Lower motor strength 5/5. Sensation intact. Objective Labs 08/02/24 03:01 08/02/24 11:16 Labs: Laboratory Results - last 24 hr 07/31/24 07/31/24 07/31/24 15:48 15:57 21:08 WBC 11.4 H RBC 4.92 Hgb 13.0 Hct 38.8 MCV 79 L MCH 26.4 MCHC 33.5 RDW Std Deviation 41.1 Plt Count 371 Neut % (Auto) 71 Lymph % (Auto) 20 Ralls % (Auto) 8 Eos % (Auto) 1 Baso % (Auto) 0 Neut # (Auto) 8.1 H Lymph # (Auto) 2.2 Ralls # (Auto) 0.9 H Eos # (Auto) 0.1 Baso # (Auto) 0.0 Immature Gran # (Auto) 0.03 H Absolute Nucleated RBC 0.00 Immature Gran % 0 Nucleated RBC % 0 Sodium 119 L* 122 L Potassium 4.2 4.2 Chloride 84 L 87 L Carbon Dioxide 29.2 29.5 Anion Gap 6 L 6 L BUN 13 14 Creatinine 1.4 H 1.3 Estim Creat Clear Calc 41.0 L 44.1 L eGFR 41 L 45 L BUN/Creatinine Ratio 9 L 11 L Glucose 106 113 H Calculated Osmolality 240 L 247 L Calcium 9.3 9.3 Corrected Calcium 9.3 Phosphorus 4.2 Magnesium 1.7 Total Bilirubin 0.5 AST 22 ALT 17 Alkaline Phosphatase 150 H B-Natriuretic Peptide Total Protein 6.7 Albumin 4.6 Globulin 2.1 L Albumin/Globulin Ratio 2.2 Lipase 44 Ur Collection Type Clean Catch Urine Color Yellow Urine Clarity Turbid A Urine pH 6.5 Ur Specific [place] 1.012 Urine Protein Trace Urine Glucose (UA) Negative Urine Ketones Negative Urine Blood 2+ A Urine Nitrite Negative Urine Bilirubin Negative Urine Urobilinogen (Auto) Negative Ur Leukocyte Esterase Positive Urine RBC 7 H Urine WBC 40 H Ur Squamous Epith Cells 5 Ur Transition Epith Cell < 1 Urine Bacteria 3+ A Ur Culture Indicated? Yes 08/01/24 08/01/24 08/01/24 01:02 04:10 09:11 WBC 9.9 RBC 4.56 Hgb 12.0 Hct 37.3 MCV 82 MCH 26.3 MCHC 32.2 RDW Std Deviation 42.0 Plt Count 336 D Neut % (Auto) 58 Lymph % (Auto) 29 Ralls % (Auto) 12 Eos % (Auto) 1 Baso % (Auto) 0 Neut # (Auto) 5.8 Lymph # (Auto) 2.8 Ralls # (Auto) 1.1 H Eos # (Auto) 0.1 Baso # (Auto) 0.0 Immature Gran # (Auto) 0.03 H Absolute Nucleated RBC 0.00 Immature Gran % 0 Nucleated RBC % 0 Sodium 123 L 122 L 122 L Potassium 4.2 3.9 4.0 Chloride 90 L 86 L 88 L Carbon Dioxide 29.5 29.2 29.9 Anion Gap 4 L 7 4 L BUN 15 16 14 Creatinine 1.3 1.4 H 1.2 Estim Creat Clear Calc 44.1 L 41.0 L 48.8 L eGFR 45 L 41 L 49 L BUN/Creatinine Ratio 12 11 L 12 Glucose 90 93 99 Calculated Osmolality 248 L 247 L 246 L Calcium 9.1 9.1 8.5 Corrected Calcium Phosphorus Magnesium Total Bilirubin AST ALT Alkaline Phosphatase B-Natriuretic Peptide Total Protein Albumin Globulin Albumin/Globulin Ratio Lipase Ur Collection Type Urine Color Urine Clarity Urine pH Ur Specific [place] Urine Protein Urine Glucose (UA) Urine Ketones Urine Blood Urine Nitrite Urine Bilirubin Urine Urobilinogen (Auto) Ur Leukocyte Esterase Urine RBC Urine WBC Ur Squamous Epith Cells Ur Transition Epith Cell Urine Bacteria Ur Culture Indicated? 08/01/24 08/01/24 12:20 13:13 WBC RBC Hgb Hct MCV MCH MCHC RDW Std Deviation Plt Count Neut % (Auto) Lymph % (Auto) Ralls % (Auto) Eos % (Auto) Baso % (Auto) Neut # (Auto) Lymph # (Auto) Ralls # (Auto) Eos # (Auto) Baso # (Auto) Immature Gran # (Auto) Absolute Nucleated RBC Immature Gran % Nucleated RBC % Sodium 123 L Potassium Chloride Carbon Dioxide Anion Gap BUN Creatinine Estim Creat Clear Calc eGFR BUN/Creatinine Ratio Glucose Calculated Osmolality Calcium Corrected Calcium Phosphorus Magnesium Total Bilirubin AST ALT Alkaline Phosphatase B-Natriuretic Peptide 216 H Total Protein 6.2 Albumin Globulin Albumin/Globulin Ratio Lipase Ur Collection Type Urine Color Urine Clarity Urine pH Ur Specific [place] Urine Protein Urine Glucose (UA) Urine Ketones Urine Blood Urine Nitrite Urine Bilirubin Urine Urobilinogen (Auto) Ur Leukocyte Esterase Urine RBC Urine WBC Ur Squamous Epith Cells Ur Transition Epith Cell Urine Bacteria Ur Culture Indicated? Quality Measures Quality Measures none Advance care planning discussed with:: patient Assessment & Plan Assessment Current Active Medications: Generic Name Dose Route Start Last Admin Trade Name Freq PRN Reason Stop Dose Admin Acetaminophen 650 mg 08/01/24 01:19 08/01/24 03:22 Acetaminophen 325 Mg Tablet PO 08/30/24 20:44 650 mg Q6H PRN Administration Pain 1-3 and Fever >100.3 Hydrocodone Bitart/Acetaminophen 1 tab 08/01/24 09:37 08/01/24 10:09 Hydrocodone/Apap 5/325 Tablet PO 08/06/24 09:36 1 tab Q6HR PRN Administration PAIN SCALE 4-6 (Moderate Apixaban 5 mg 08/01/24 09:00 08/01/24 09:06 Apixaban 2.5 Mg Tablet PO 08/31/24 08:59 5 mg BID CANDACE Administration Hydromorphone HCl 1 mg 08/01/24 09:37 Hydromorphone Inj 2 Mg/Ml Vial IVP 08/06/24 09:36 Q4HR PRN PAIN SCALE 7-10 (Severe Ceftriaxone Sodium/Dextrose 50 mls @ 100 mls/hr 08/01/24 21:00 Rocephin/D5w 1gm Iv Premix IV 08/08/24 20:59 QDAY@2100 CANDACE Sodium Chloride 1,000 mls @ 75 mls/hr 08/01/24 10:27 08/01/24 10:50 Ns IV 08/02/24 10:26 75 mls/hr .[id number] CANDACE Administration Nicotine 7 mg 08/01/24 09:00 08/01/24 09:10 Nicotine Patch 7 Mg/24 Hr Patch.Td24 TOP 08/31/24 08:59 Not Given QDAY CANDACE Plan Patient is 67 year old female with past medical history of HTN, HLD, COPD-not on home oxygen, w/ 40+ year tabacoo use, history of dysphagia, hx of major depression, GERD, hiatal hernia, esophageal strictures s/p dilation, hemorroids, and mixed urinary incontinence (on Myrbetriq 50 mg PO daily) w/ previous history of bladder stones who was admitted for hyponatremia and UTI. #Sever Hyponatremia, Hypo-osmolar, Hypovolemic Etiology: given possible KAMALJIT with renal cyst consider renal failure with a more isovolemic presentation requiring water restrictions but may also responde to isotonic saline DDx: Likely secondary to extra renal causes such as poral oral intake as patient is actuely in pain but BUN is within noraml range vs less likely an isomotic hyponatremia in nature as serum osmoality is low Diagnostics: given polypharmacy, medication toxicity can not be ruled out vs pre-renal given increasing abdominal pain leading to decrease oral intake leading to pre-renal pattern. Na (07/31/2024) 119, Na (08/01/2023) 122/123;Serum omolaity 240 & 247 Glucose 113/90 BUN 13, Cr 1.4, GFR 41 Calculated Na Deficit =646.4 meq Plan -NS 1 L @70 cc -Pending Urine Na -Consider Urine electrolytes to rule out RTA -Sodium correction 128 within the next 24 hours. -Q6 Sodium Checks -Consult Nephrology, Dr. Guaman, appreciate recommendations #Renal Calculi, Right Kidney-non hydronephrosis #Nephrolithiasis #Renal Cyst #Vesicular Calculi Etiology: Patient previously prescribed calcium citrate, given previous history of bladder stones s/p laser stone fragmetnation on (03/12/2024) likely an chronic condition. Patient previous listed Hydrochlorothiazide as medication, possible that calcium oxalate stones secondary to medicaiton. DDx: Caltrate 600 D3 also listed less likely as hypercalcium is not note on chart vs dehydration causing increase in oxalate vs malabsorption Diagnostics: Abdomen US Negative for cholelithiasis. Gallbladder wall is thickened 0.43, consider HIDA or MRCP. Normal common bile duct. Liver normal size, fatty liver. Abdomen/Pelvis CT (07/31/2024): Primary hepatocellular disease, 2 mm right renal calculus, 7 cm right renal cyst , INfraumbical left hernia containing small bowel and right herning continating colon but no incarcerated bowel. 9 mm calcification consistent w/ calculus in the urinary bladder Renal U/S Moderate Bilateral renal parenchymal scar formation, lower power begining right renal cyst 6.8 cm. NO hydronephrosis Plan -Strain Urine -Tamulosin -Phenazophyridine 100 mg PO TIDWM PRN -Pain Management -Urology Consulted, appreciate recommendations #Abdominal Pain #Cholelithiasis Etiology: Patient is complain of diffuse abdominal pain, positive robertson sign note during morning rounds, thus symptomatic cholelithiasis can not be ruled out. Ursodiol prescribed can be used to treat PBS and gallstones as well. DDx: patient does have a history of hiatal hernia which is large which would also be worsening abdominal pain vs history of diverticulosis from colonoscopy by dr. correa,per chart review Diagnostics: Abdomen US Negative for cholelithiasis. Gallbladder wall is thickened 0.43, consider HIDA or MRCP. Normal common bile duct. Liver normal size, fatty liver. Abdomen/Pelvis CT (07/31/2024): Primary hepatocellular disease, 2 mm right renal calculus, 7 cm right renal cyst , INfraumbical left hernia containing small bowel and right herning continating colon but no incarcerated bowel. 9 mm calcification consistent w/ calculus in the urinary bladder Plan -NPO -HIDA Scan #KAMALJIT, likely intrinsic, improving Etiology: Likely secondary to intrinisc kidney injury given BUN/Cr ratio is <15, probably secondary to various kidney stones and renal calculi on right kidney DDx: Diagnostic -Renal U/S Moderate Bilateral renal parenchymal scar formation, lower power begining right renal cyst 6.8 cm. NO hydronephrosis Previous baseline 05/17/2024 BUN 10 Cr 1.0-->(07/31/2024) BUN 14 Cr 1.4, BUN/Cr ratio 9 GFR 41 Plan -continue NS 1 L -avoid nephrotoxins -renally dose medication -gentle hydration #Complicated UTI #Mild Leukocytosis Etiology: likely secondary to obstructive uropathy DDx: history of mixed incontinence and history of sling, thus underlying incontinence leading to UTI can not be excluded vs medcation side effects Diagnostics: UA Turbid, Blood 2+, Esterase +, WBC 40, bacteria + Plan Ceftrixone (07/31/2024--) Day 1 Urine (07/31/2024) culture pending #Atrial Fibrillation, rate controlled Sandra has a history of atrial fibrillaiton on Diltiazem vs Metoprolol and Eliquis 5 mg BID Diagnostics: EKG(07/31/2024): Junction Rythm with frequent Ventricular Premature Complexes Plan -Echo pending -Eliquis 5 mg BID -Pending medication reconciliation, Dilitiazem vs Metoprolol #HTN Home medication of lisinopril 5 mg Plan -Consider restarting home dose of Lisinopril 5 mg #Hyperlipidemia No hyerlipidemia medication listed, previously taking Atorvastatin per chart review from Dr. Correa Diagnostics: -Lipid Panel (10/14/2023): Triglycerides 41, Cholesterol 106, HDL 39 Plan -consider lipid panel #COPD Sandra has a past meical history of COPD no on oxygen on home. On trelegy and albuterol Plan -keep patient between 88%-92% spO2 if permitted given patient's past medical history of COPD -Consider adding Duonebs PRN #History of Major Depression Previously refilled bupropion and likely continues medication Plan -Consider restarting bupropion Mixed Incontience -Myrbetriq 50 mg currenlty holding medication -Pending Urology #Primary Hepatocellular Disease Primary biliary cholangistis (PBC) can not be excluded as patient maybe taking ursodiol vs history of gallstones vs MASH Diagnostics: Abdomen US Negative for cholelithiasis. Gallbladder wall is thickened 0.43, consider HIDA or MRCP. Normal common bile duct. Liver normal size, fatty liver. Abdomen/Pelvis CT (07/31/2024): Primary hepatocellular disease, 2 mm right renal calculus, 7 cm right renal cyst , INfraumbical left hernia containing small bowel and right herning continating colon but no incarcerated bowel. 9 mm calcification consistent w/ calculus in the urinary bladder (07/31/2024) AST 22, ALT 17, Alkaline Phosphatase 150 Plan -Consider GGT -No acute intervention #CT Abdominal Aortic Aneurysm, 3.9 cm LIkely secondary to tobacco use disorder Plan -outpatient F/U #Tobacco Use Disorder Patient has a >40 year history Plan -Nicotine Patch [facility] Health Maintenance: Disp: Pt is currently admitted to floors for further management of hyponatremia, nephrolithiasis, awaiting improved hyponatremia and nephrolithiasis FEN: cardiac-->NPO after midnight for HIDA DVT: on subQ heparin Code: Full code - The patient's plan was discussed with attending Dr. Joyce and senior residents Constantino Alfaro MD PGY1 Internal Medicine Attending Provider Attestation/Addendum Subcapsular I have discussed and was present for the essential components of the history, physical examination, diagnosis, and treatment plan with the resident. I agree with the patient's care as documented by the resident and amended herein by me. Mushtaq Joyce, DO. In short and short, patient is a 68-year-old female with significant past medical history of COPD, not on home O2, HLD, A-fib on Eliquis and hypertension who presented on 07/31 for diffuse abdominal pain, KAMALJIT, UTI and hyponatremia. INTERVAL HX: Vital signs stable, patient afebrile overnight, presently on oxime mask, 5 L, SpO2 97% in the AM. CBC unremarkable today, BMP significant for uptrending sodium to 122, potassium 4.0, chloride 88, BNP 216 drawn today. Renal ultrasound performed today demonstrated mild bilateral renal parenchymal scar formation and a lower pole benign right renal cyst 6.8 cm. No hydronephrosis demonstrated. CURRENT MEDICATIONS: Eliquis 5 mg p.o. twice daily Ceftriaxone NS 75 mL/h Significant problems: #Hyponatremia?improved #KAMALJIT likely prerenal versus infectious #Urinary tract infection likely secondary to gram-negative bacteria, urine culture pending #?Cholecystitis #Hepatocellular disease, primary #Nephrolithiasis #Right renal cyst measuring 7 cm #Tobacco use #History of COPD #History of atrial fibrillation on AC PLAN: Will continue gentle IVF today, NS 75 mL/h, sodium is increasing, nephrology consulted, appreciate recommendations. KAMALJIT is also improving. Will continue ceftriaxone and follow-up with urine cultures. HIDA scan pending for cholecystitis rule out, echo pending, urine lites ordered and pending, physical therapy ordered. Although this document has been carefully reviewed, there may still be some phonetic and other typographical errors. These errors are purely grammatical due to imperfections in the software program and should not be construed in any way to compromise the substance of the patient's medical care during this visit.
[2024-08-01 16:00] VITALS: BP 141/55; PULSE 79; PULSE 87; RESP 18; TEMP 36.3; O2SAT 93
[2024-08-01 20:00] VITALS: BP 119/60; PULSE 80; PULSE 82; RESP 23; TEMP 36.3; O2SAT 99
[2024-08-01] MEDS: cefTRIAXone/D5w 1gm IV premix 50 ML IV (20:18)
[2024-08-02] VITALS (7 sets, daily range): BP systolic 101–135; BP diastolic 53–82; PULSE 62–97; RESP 17–20; TEMP 36.1–36.7; O2SAT 91–99
[2024-08-02] MEDS: SODIUM CHLORIDE 1 GM TABLET PO (00:09)
[2024-08-02] MEDS: SODIUM CHLORIDE 0.9% 1000 ML 1,000 ML 75 ML IV (00:28)
--- NOTE | 2024-08-02 02:15 | PC.NURSE ---
urine specimen for osmolality sent to lab.
[2024-08-02] MEDS: ACETAMINOPHEN 325 MG TABLET 650 MG PO (02:32)
[2024-08-02 04:03] LABS: Basophils % (Auto) 1 % (0-2.5); Eosinophils % (Auto) 1 % (0-10); Hematocrit 35.9 % (36.0-46.0); Hemoglobin 11.3 g/dL (12.0-16.0); Immature Granulocytes % (Auto) 0 % (0-0); Immature Granulocytes Auto 0.01 Thou/mm3 (0.00-0.00); Lymphocytes # (Auto) 1.9 Thou/mm3 (1.0-4.8); Lymphocytes % (Auto) 24 % (10-50); Mean Corpuscular HGB Conc 31.5 g/dl (31.0-37.0); Mean Corpuscular Hemoglobin 26.1 pg (25.0-35.0); Mean Corpuscular Volume 83 fL (80-100); Monocytes # (Auto) 1.1 Thou/mm3 (0.0-0.8); Monocytes % (Auto) 14 % (0-12); Neutrophils # (Auto) 4.7 Thou/mm3 (1.8-7.7); Neutrophils % (Auto) 61 % (37-80); Nucleated Red Blood Cell % 0 /100 WBC (0); Platelet Count 312 Thou/mm3 (140-440); RDW Standard Deviation 43.2 fL (36.4-46.3); Red Blood Count 4.33 Miln/mm3 (4.00-5.20); White Blood Count 7.7 Thou/mm3 (3.6-11.0)
[2024-08-02 04:17] LABS: Alanine Aminotransferase 12 U/L (10-49); Albumin, Serum 3.8 gm/dL (3.4-4.8); Albumin/Globulin Ratio 1.9 (1.2-2.2); Alkaline Phosphatase 120 U/L (46-116); Anion Gap 3 (7-16); Aspartate Amino Transferase 18 U/L (0-34); BUN/Creatinine Ratio 12 Ratio (12-20); Bilirubin,Total 0.2 mg/dL (0.3-1.2); Blood Urea Nitrogen 12 mg/dL (9-23); Calcium 8.1 mg/dL (8.3-10.6); Calcium (Corrected) 8.3 mg/dL (8.5-10.1); Carbon Dioxide 31.6 mMol/L (20.0-31.0); Chloride 95 mMol/L (98-107); Estimated Creatinine Clearance 58.5 mL/min (>60); Glucose 97 mg/dL (74-106); Osmolality,Calculated 260 (275-295); Phosphorous 2.9 mg/dL (2.4-5.1); Potassium 4.5 mMol/L (3.4-5.1); Sodium 130 mMol/L (136-145); Total Protein 5.8 gm/dL (5.7-8.2); eGFR > 60 See Note
--- NOTE | 2024-08-02 07:44 | ESCONSULT_ITS ---
RE: BHASKAR TABARES : 1955 DATE OF CONSULTATION: 08/01/2024 REASON FOR REFERRAL: Acute hyponatremia on chronic hyponatremia. REFERRING PHYSICIAN: Hospitalist. This patient is a 68-year-old woman with past medical history significant for hypertension, atrial fibrillation, on Eliquis, COPD, not on home oxygen, but requiring 4 liters of oxygen during this hospitalization and chronic hyponatremia, who presented to the hospital yesterday with abdominal pain and UTI symptoms. The patient also has a history of depression and anxiety and currently takes bupropion 75 mg p.o. t.i.d. When she presented to the emergency room yesterday, she was found with a serum sodium of 119. Previous admission showed that she also got admitted for hyponatremia in the past. Her serum sodium ranged anywhere from 119 to 123 during that admission in 09/2023. At that time, urine osmolality was also obtained and it was 275 mOsm/kg. When she got admitted yesterday, she was found with urine wbc of 40, urine rbc of 7 with negative nitrite. The patient was previously seen by Dr. Pedroza for a kidney stone in the bladder, which was also seen on the CT of the abdomen and pelvis done during this admission. When she arrived yesterday, her serum sodium was noted to be low as well at 119 and was also found with an elevated creatinine level of 1.4. She was mildly hydrated with IV normal saline and her serum sodium started to go up from 119 to 122 today. When I saw the patient, the patient seems to be doing well and has denied any abdominal pain, nausea or vomiting. She also was feeling nauseous, but has no vomiting. She denies chest pain or shortness of breath. She denies leg swelling as well. PAST MEDICAL HISTORY: As previously mentioned, depression, anxiety, history of bladder stone, fatty liver versus liver cirrhosis, chronic hyponatremia, atrial fibrillation, on Eliquis, right kidney stone, right kidney cyst, abdominal aortic aneurysm with AP dimension of 3.9 cm. CURRENT MEDICATIONS: At home, she is takin. Albuterol inhaler. 2. Alendronate 17 mg weekly. 3. Apixaban 5 mg p.o. b.i.d. 4. Aspirin 81 mg daily. 5. Bupropion 75 mg p.o. t.i.d. 6. Caltrate 600 mg one tablet p.o. q.a.m. 7. Cetirizine 10 mg daily. 8. Diltiazem 120 mg daily. 9. Furosemide 20 mg daily. 10. Metoprolol succinate 25 mg daily. 11. Lisinopril 5 mg daily. 12. Myrbetriq 50 mg p.o. daily. 13. Protonix 40 mg p.o. daily. 14. Trelegy. 15. Ursodiol 500 mg t.i.d. 16. acetaminophen. 17. Apixaban 5 mg b.i.d. 18. Rocephin 1 g daily. 19. Hydromorphone. 20. Ondansetron. 21. Phenazopyridine. 22. Nicotine patch 7 mg per patch every 24 hours. 23. Morphine. SOCIAL HISTORY: He has a [id number] of cigarette use. Lives alone with two pets. ALLERGIES: NO KNOWN DRUG ALLERGIES. PHYSICAL EXAMINATION: GENERAL: She is awake, alert, oriented. VITAL SIGNS: Blood pressure of 119/60, heart rate of 80, respiratory rate of 23, O2 saturation of 99% on 4 liters. HEENT: Anicteric sclerae. Normocephalic. NECK: Supple, no JVD. CHEST AND LUNGS: Normal expansion. Clear breath sounds. CARDIAC: Without murmur. ABDOMEN: Soft, nontender. EXTREMITIES: No edema. LABORATORY DATA: Sodium 123, potassium 4, chloride 88, CO2 of 29.9, BUN 14, creatinine of 1.2, glucose 99. BNP was drawn today, 216. Urine was turbid with blood, no nitrite. Hemoglobin 12, WBC 9800, platelet count 336. Sodium 133, potassium 4, chloride 88, BUN 14, creatinine of 1.2, glucose 99, calcium 8.5. Kidney ultrasound; right kidney measures 12.9 cm, left kidney measures 11.6 cm. Chest x-ray; mild prominence of left ventricle, significant vascular congestion, prominent osteopenia, impression of early CHF. ASSESSMENT: 1. Acute on chronic hyponatremia, most likely secondary to syndrome of inappropriate antidiuretic hormone secretion from abdominal pain. 2. Chronic hyponatremia, most likely secondary to syndrome of inappropriate antidiuretic hormone secretion due to Wellbutrin or bupropion, which is norepinephrine/dopamine- reuptake inhibitor. 3. History of atrial fibrillation, on Eliquis. 4. Bladder stone with urinary tract infection. 5. Right kidney stone. 6. Current smoker. 7. Chronic obstructive pulmonary disease. 8. History of bladder stone. PLAN: I suspect the patient has history of chronic hyponatremia due to Wellbutrin, which is also associated with hyponatremia caused by SIADH given her Uosm of 275mosm/kg in the setting of hyponatremia. The patient had an acute on chronic hyponatremia due to abdominal pain. Given that her blood pressures are on the lower side, I am more keen of limiting her fluid intake to 1200 mL per day and to add salt tablet 1 g twice a day. Given that blood pressures are on the lower side, I will hold the use of any V2 receptor antagonist like Tolvaptan or Conivaptan until her blood pressures are more stable. Her Wellbutrin has to be stopped in the outpatient setting. Correction of serum sodium in patients with acute on chronic hyponatremia should not exceed 6 mEq for the next 24 hours as our daily goal. I agree with serial sodium levels. Our goal for the next 24 hours will be a serum sodium of around 125 to 128. Continue to monitor her urine output and electrolytes on a daily basis. DT: 22:04:24 TT: 23:49:00 Ref: [id number] - TID: [id number] [facility]
[2024-08-02] MEDS: LIDOCAINE 5% 1 PATCH TOP (08:15)
[2024-08-02 08:30] LABS: Sodium 133 mMol/L (136-145)
[2024-08-02] MEDS: LEVOFLOXACIN/D5W 750MG IVPB 750 MG/150 ML BAG 100 MG IV (10:40)
[2024-08-02 12:17] LABS: Sodium 131 mMol/L (136-145)
--- NOTE | 2024-08-02 13:33 | PC.NURSE ---
Patient request that her Lidocaine patch be removed, Saw URRUTIA notified of removal
--- NOTE | 2024-08-02 14:00 | ESPR_ITS ---
<Statement entered by Tony Meeks MD - 08/02/24 16:09> Patient was seen and examined at the bedside. Patient appeared to be in back pain and was asking for pain medication. She was explained that she has to be n.p.o. for HIDA scan. Will resume her [place] and Dilaudid once HIDA scan is done. And resume her diet. Patient's sodium improved at 133 and nephrology did not recommend salt tablet. 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 Urine culture grew Proteus sensitive to Levaquin therefore Levaquin 750 mg once a day was initiated. Will follow-up on echocardiogram results. Pain medication was resumed. Will currently holding beta-blockers due to soft blood pressure.All labs and orders were reviewed. I saw and examined the patient, and I agree with current management stated by Dr Angelina MD,PGY1. Plan of care was discussed with the attending physician and resident physician. Disclaimer: Despite multiple revisions, due to the dictation software being used, the document bellow may not be free of grammatical errors including phonetic/typographic errors. However, this does not deter from our commitment to providing health care in the patient's best interest in mind. Dr. Constantino MD, PGY 2 Documentation for date of: 08/02/24 Subjective Subjective Interval history: Patient is 67 year old female with past medical history of HTN, HLD, COPD-not on home oxygen, w/ 40+ year tabacoo use, history of dysphagia, hx of major depression, GERD, hiatal hernia, esophageal strictures s/p dilation, hemorroids, and mixed urinary incontinence (on Myrbetriq 50 mg PO daily) w/ previous history of bladder stones (2019) who was admitted for hyponatremia and UTI. No overnight events reported for patient. Patient denied abdominal pain this morning, but patient continues to report back tenderness, specifically right costal vertebral tenderness. Patient denied any pyrexia or chills overnight. Patient has not noted any passage of kidney stone. Positive for dysuria. Family at bedside. Chest chest pain or shortness of breath. Exam Vital Signs Temp Pulse Resp BP Pulse Ox O2 Del Method O2 Flow Rate 97.0 F 84 19 120/53 L 96 Nasal Cannula 4 08/02/24 08:00 08/02/24 08:00 08/02/24 08:00 08/02/24 08:00 08/02/24 08:00 08/02/24 08:00 08/02/24 08:00 Narrative Exam General Appearance: Alert & Oriented X3, well-nourished female who is lying in bed in mild discomfort. HEENT: Skull symmetrical and atraumatic. Conjunctivae pale pink and moist. Pupils equal, round, reactive to light and accommodation (PERRL). Cardio: Normal Rate and Rhythm with S1 and S2 heart sounds. No murmurs or extra heart sounds auscultated. No bruits on carotid auscultation. No peripheral edema or cyanosis. Lungs: Symmetric with good expansion. Chest nontender and back tender pulp drier. Breath sounds vesicular without crackles, wheezing or rhonchi Abdomen: non-tender, Non-distended, Normal Reactive Bowel Sounds. Right costal vertebral tenderness. Mild suprapubic pain, increased with urination. Neuro: Alert, cooperative, oriented to person, place, and time. Speech clear. CN grossly intact. Upper motor strength 5/5 and Lower motor strength 5/5. Sensation intact. Objective Labs 08/02/24 03:01 08/02/24 11:16 Labs: Laboratory Results - last 24 hr 08/01/24 08/02/24 08/02/24 13:13 03:01 03:01 WBC 7.7 RBC 4.33 Hgb 11.3 L Hct 35.9 L MCV 83 MCH 26.1 MCHC 31.5 RDW Std Deviation 43.2 Plt Count 312 Neut % (Auto) 61 Lymph % (Auto) 24 [place] % (Auto) 14 H Eos % (Auto) 1 Baso % (Auto) 1 Neut # (Auto) 4.7 Lymph # (Auto) 1.9 [place] # (Auto) 1.1 H Eos # (Auto) 0.0 Baso # (Auto) 0.0 Immature Gran # (Auto) 0.01 H Absolute Nucleated RBC 0.00 Immature Gran % 0 Nucleated RBC % 0 Sodium 130 L Cancelled Potassium 4.5 D Chloride 95 L Carbon Dioxide 31.6 H Anion Gap 3 L BUN 12 Creatinine 1.0 Estim Creat Clear Calc 58.5 L eGFR > 60 BUN/Creatinine Ratio 12 Glucose 97 Calculated Osmolality 260 L Calcium 8.1 L Corrected Calcium 8.3 L Phosphorus 2.9 Total Bilirubin 0.2 L AST 18 ALT 12 Alkaline Phosphatase 120 H D B-Natriuretic Peptide 216 H Total Protein 5.8 Albumin 3.8 D Globulin 2.0 L Albumin/Globulin Ratio 1.9 08/02/24 08/02/24 07:54 11:16 WBC RBC Hgb Hct MCV MCH MCHC RDW Std Deviation Plt Count Neut % (Auto) Lymph % (Auto) [place] % (Auto) Eos % (Auto) Baso % (Auto) Neut # (Auto) Lymph # (Auto) [place] # (Auto) Eos # (Auto) Baso # (Auto) Immature Gran # (Auto) Absolute Nucleated RBC Immature Gran % Nucleated RBC % Sodium 133 L 131 L Potassium Chloride Carbon Dioxide Anion Gap BUN Creatinine Estim Creat Clear Calc eGFR BUN/Creatinine Ratio Glucose Calculated Osmolality Calcium Corrected Calcium Phosphorus Total Bilirubin AST ALT Alkaline Phosphatase B-Natriuretic Peptide Total Protein Albumin Globulin Albumin/Globulin Ratio Quality Measures Quality Measures none Advance care planning discussed with:: other Assessment & Plan Assessment Current Active Medications: Generic Name Dose Route Start Last Admin Trade Name Freq PRN Reason Stop Dose Admin Acetaminophen 650 mg 08/01/24 01:19 08/02/24 02:32 Acetaminophen 325 Mg Tablet PO 08/30/24 20:44 650 mg Q6H PRN Administration Pain 1-3 and Fever >100.3 Apixaban 5 mg 08/01/24 09:00 08/02/24 08:27 Apixaban 2.5 Mg Tablet PO 08/31/24 08:59 Not Given BID NGA Levofloxacin/Dextrose 750 mg in 150 mls @ 100 mls/hr 08/02/24 10:30 08/02/24 10:40 Levaquin Ivpb IV 08/09/24 10:29 100 mls/hr QDAY NGA Administration Ketorolac Tromethamine 15 mg 08/02/24 10:02 Ketorolac Inj 30 Mg/Ml Vial IVP 08/07/24 10:01 Q6HR PRN Breakthrough Pain Lidocaine 1 patch 08/01/24 18:11 08/02/24 08:15 Lidocaine 5% 1 Patch TOP 08/31/24 18:10 1 patch UD PRN Administration backPain Protocol Nicotine 7 mg 08/01/24 09:00 08/02/24 08:28 Nicotine Patch 7 Mg/24 Hr Patch.Td24 TOP 08/31/24 08:59 Not Given QDAY NGA Phenazopyridine HCl 100 mg 08/01/24 18:39 Phenazopyridine Hcl 100 Mg Tablet PO 08/03/24 17:31 TIDWM PRN Bladder Pain Sodium Chloride 1 gm 08/01/24 22:15 08/02/24 00:09 Sodium Chloride 1 Gm Tablet PO 08/31/24 22:14 1 gm BID NGA Administration Tamsulosin HCl 0.4 mg 08/02/24 09:00 08/02/24 08:28 Tamsulosin Hcl 0.4 Mg Capsule PO 09/01/24 08:59 Not Given QDAY NGA Vitamin D 400 iu 08/03/24 09:00 Cholecalciferol (Vitamin D3) 400 Iu Tablet PO 09/02/24 08:59 QDAY NGA Plan Patient is 67 year old female with past medical history of HTN, HLD, COPD-not on home oxygen, w/ 40+ year tabacoo use, history of dysphagia, hx of major depression, GERD, hiatal hernia, esophageal strictures s/p dilation, hemorroids, and mixed urinary incontinence (on Myrbetriq 50 mg PO daily) w/ previous history of bladder stones who was admitted for hyponatremia and UTI. #Sever Hyponatremia, Hypo-osmolar, Hypovolemic Etiology: given possible KAMALJIT with renal cyst consider renal failure with a more isovolemic presentation requiring water restrictions but may also responde to isotonic saline DDx: given polypharmacy, medication toxicity can not be ruled out vs pre-renal given increasing abdominal pain leading to decrease oral intake leading to pre- renal pattern. 08/02/2024: Per Dr. Guaman recommendations, Hyponatremia likely secondary to SIADH given Bupropion use for major depression in the setting of normal osmality on previous admissions and hyponatremia during that admission. Diagnostics: Na (07/31/2024) 119, Na (08/01/2023) 122/123;Serum omolaity 240 & 247 (08/02/2024): NA 130, 133, 131, Osmolality 260 Calculated Na Deficit =646.4 meq Plan -Pending Urine Na -Sodium started overnight,D/C on 08/02/2024 AM given sodium goal reached. -Consider Urine electrolytes to rule out RTA -Sodium correction 128 within the next 24 hours, Goal reached. -Q6 Sodium Checks, D/C 07/2024 -NS 1 L @70 cc, DC per Dr. Guaman recommendations -Consult Nephrology, Dr. Guaman, appreciate recommendations #Renal Calculi, Right Kidney-non hydronephrosis #Nephrolithiasis #Renal Cyst #Vesicular Calculi Etiology: Patient previously prescribed calcium citrate, given previous history of bladder stones s/p laser stone fragmetnation on (03/12/2024) likely an chronic condition. Patient previous listed Hydrochlorothiazide as medication, possible that calcium oxalate stones secondary to medicaiton. DDx: Caltrate 600 D3 also listed less likely as hypercalcium is not note on chart vs dehydration causing increase in oxalate vs malabsorption Diagnostics: Abdomen US Negative for cholelithiasis. Gallbladder wall is thickened 0.43, consider HIDA or MRCP. Normal common bile duct. Liver normal size, fatty liver. Abdomen/Pelvis CT (07/31/2024): Primary hepatocellular disease, 2 mm right renal calculus, 7 cm right renal cyst , INfraumbical left hernia containing small bowel and right herning continating colon but no incarcerated bowel. 9 mm calcification consistent w/ calculus in the urinary bladder Renal U/S Moderate Bilateral renal parenchymal scar formation, lower power begining right renal cyst 6.8 cm. NO hydronephrosis Plan -Strain Urine -Tamulosin -Phenazophyridine 100 mg PO TIDWM PRN -Pain Management -Urology Consulted, appreciate recommendations #Complicated UTI #Mild Leukocytosis Etiology: likely secondary to obstructive uropathy DDx: history of mixed incontinence and history of sling, thus underlying incontinence leading to UTI can not be excluded vs medcation side effects Diagnostics: UA Turbid, Blood 2+, Esterase +, WBC 40, bacteria + Urine Culture (08/02/2024): Proteus; senstive to levofloxacin & Cefotaxime Plan -Started (08/02/2024) Levofloxacin 750 mg QDay -Ceftrixone (07/31/2024-08/02/2024) #Atrial Fibrillation, rate controlled Sandra has a history of atrial fibrillaiton on Diltiazem vs Metoprolol and Eliquis 5 mg BID Diagnostics: EKG(07/31/2024): Junction Rythm with frequent Ventricular Premature Complexes Echo (07/2024): Echo (08/02/2024): Limited Study. Patient Refused. Normal LV size and function. Estimated EF 60-65%. MIld AI. Mild AV sclerosis. Trace TR. Plan -Eliquis 5 mg BID -Pending medication reconciliation, Dilitiazem vs Metoprolol #HTN Home medication of lisinopril 5 mg Plan -Consider restarting home dose of Lisinopril 5 mg #Hyperlipidemia No hyerlipidemia medication listed, previously taking Atorvastatin per chart review from Dr. Correa Diagnostics: -Lipid Panel (10/14/2023): Triglycerides 41, Cholesterol 106, HDL 39 Plan -consider lipid panel #COPD Sandra has a past meical history of COPD no on oxygen on home. On trelegy and albuterol Plan -keep patient between 88%-92% spO2 if permitted given patient's past medical history of COPD -Consider adding Duonebs PRN #History of Major Depression Previously refilled bupropion and likely continues medication. Hold given likely causes of hyponatremia. Plan -Hold bupropion given hyponatremia. Mixed Incontinence -Myrbetriq 50 mg currenlty holding medication -Pending Urology #Primary Hepatocellular Disease Primary biliary cholangistis (PBC) can not be excluded as patient maybe taking ursodiol vs history of gallstones vs MASH Diagnostics: Abdomen US Negative for cholelithiasis. Gallbladder wall is thickened 0.43, consider HIDA or MRCP. Normal common bile duct. Liver normal size, fatty liver. Abdomen/Pelvis CT (07/31/2024): Primary hepatocellular disease, 2 mm right renal calculus, 7 cm right renal cyst , INfraumbical left hernia containing small bowel and right herning continating colon but no incarcerated bowel. 9 mm calcification consistent w/ calculus in the urinary bladder (07/31/2024) AST 22, ALT 17, Alkaline Phosphatase 150-->(08/02/2024) AST 18 ALT 12, Alkaline Phosphatase 120 Plan -Consider GGT -No acute intervention #CT Abdominal Aortic Aneurysm, 3.9 cm LIkely secondary to tobacco use disorder Plan -outpatient F/U #Tobacco Use Disorder Patient has a >40 year history Plan -Nicotine Patch Nga #KAMALJIT, likely intrinsic, resolved. Etiology: Likely secondary to intrinisc kidney injury given BUN/Cr ratio is <15, probably secondary to various kidney stones and renal calculi on right kidney DDx: Diagnostic -Renal U/S Moderate Bilateral renal parenchymal scar formation, lower power begining right renal cyst 6.8 cm. NO hydronephrosis Previous baseline 05/17/2024 BUN 10 Cr 1.0-->(08/02/2024) BUN 12, Cr 1.0, GFR >60, Plan -NS 1 L, D/C -avoid nephrotoxins -renally dose medication -gentle hydration #Abdominal Pain, Resolved #Asymptomatic Cholelithiasis Etiology: Patient is complain of diffuse abdominal pain, positive lane sign note during morning rounds, thus symptomatic cholelithiasis can not be ruled out. Ursodiol prescribed can be used to treat PBS and gallstones as well. DDx: patient does have a history of hiatal hernia which is large which would also be worsening abdominal pain vs history of diverticulosis from colonoscopy by dr. correa,per chart review (08/02/2024): Patient denied any abdominal pain and stated all her pain was from her back, at the costal vertebral area. Given asymptomatic, this is likely outpatient elective surgery. Diagnostics: Abdomen US Negative for cholelithiasis. Gallbladder wall is thickened 0.43, consider HIDA or MRCP. Normal common bile duct. Liver normal size, fatty liver. Abdomen/Pelvis CT (07/31/2024): Primary hepatocellular disease, 2 mm right renal calculus, 7 cm right renal cyst , INfraumbical left hernia containing small bowel and right herning continating colon but no incarcerated bowel. 9 mm calcification consistent w/ calculus in the urinary bladder HIDA Scan (08/02/2024): Gallbladder activity. Gallbladder ejection fraction 24%, normal 35% or greater Plan -No acute intervention, consider surgery consult Health Maintenance: Disp: Pt is currently admitted to floors for further management of hyponatremia, awaiting continued improvement. FEN: cardiac DVT: on Eliquis 5 BID Code: Full code - The patient's plan was discussed with attending Dr. Joyce and senior residents Constantino Alfaro MD PGY1 Internal Medicine Attending Provider Attestation/Addendum Subcapsular I have discussed and was present for the essential components of the history, physical examination, diagnosis, and treatment plan with the resident. I agree with the patient's care as documented by the resident and amended herein by me. Mushtaq Joyce DO. In short and short, patient is a 68-year-old female with significant past medical history of COPD, not on home O2, HLD, A-fib on Eliquis and hypertension who presented on 07/31 for diffuse abdominal pain, KAMALJIT, UTI and hyponatremia. INTERVAL HX: 08/01: Vital signs stable, patient afebrile overnight, presently on oxime mask, 5 L, SpO2 97% in the AM. CBC unremarkable today, BMP significant for uptrending sodium to 122, potassium 4.0, chloride 88, BNP 216 drawn today. Renal ultrasound performed today demonstrated mild bilateral renal parenchymal scar formation and a lower pole benign right renal cyst 6.8 cm. No hydronephrosis demonstrated. 08/02: Vital signs stable, patient afebrile overnight, presently on 4 L via nasal cannula, SpO2 95%. I/oh 3020/500. CBC largely unremarkable, BMP significant for an uptrending sodium 130, creatinine 1.0. Urine cultures demonstrated MDRO Proteus, echo pending noted to be a limited study however normal LV size and function with an EF of 60-65% noted. HIDA scan performed demonstrating gallbladder activity, Demonstrating mild bilateral renal parenchymal scar formation with a lower pole benign right renal cyst at 6.8 cm with no hydronephrosis noted. CURRENT MEDICATIONS: Eliquis 5 mg p.o. twice daily Ceftriaxone -discontinued Levaquin start 08/02 NS 75 mL/h Significant problems: #Hyponatremia likely secondary to combination of Wellbutrin use and SIADH?improved #KAMALJIT?resolved #Urinary tract infection secondary to MDRO Proteus per urine culture #Hepatocellular disease, primary #Nephrolithiasis #Right renal cyst measuring 7 cm, likely benign #Tobacco use #History of COPD #History of atrial fibrillation on AC PLAN: Will discontinue ceftriaxone today and start Levaquin for MDRO Proteus is demonstrated on urine culture. Discontinued nephrology consulted, discontinue Wellbutrin at time of discharge, will continue salt tabs 1 g twice daily, will hold any use of V2 receptor antagonists per nephrology recommendations present sodium level above goal. Will continue to monitor closely Although this document has been carefully reviewed, there may still be some phonetic and other typographical errors. These errors are purely grammatical due to imperfections in the software program and should not be construed in any way to compromise the substance of the patient's medical care during this visit.
[2024-08-02] MEDS: LORazepam 0.5 MG TABLET PO (14:33)
[2024-08-02] MEDS: HYDROcodone/APAP 5/325 TABLET 1 TAB PO ×2 (16:18→23:10)
--- NOTE | 2024-08-02 17:34 | ESPR_ITS ---
RE: BHASKAR TABARES : 1955 DATE OF SERVICE: 08/02/2024 HISTORY OF PRESENT ILLNESS: Briefly, she is a 68-year-old woman with hypertension, atrial fibrillation, on Eliquis, COPD and not on home oxygen, but now requiring 4 L of oxygen during this hospitalization, chronic hyponatremia, depression and anxiety on bupropion, who presented to emergency room and was found with serum sodium of 119. The patient did well on fluid restriction and salt tablets and serum sodium appropriately increased from 119 to 124 to 130 today. Salt tablet has been discontinued since this morning. CURRENT MEDICATIONS: 1. Acetaminophen. 2. Apixaban. 3. Cholecalciferol. 4. Hydrocodone. 5. Ketorolac 50 mg IV q.6 p.r.n. 6. Levofloxacin 750 mg p.o. daily. 7. Lorazepam. 8. Magnesium as needed. 9. Nicotine patch 7 mg p.o. daily. 10. Phenazopyridine 100 mg p.o. t.i.d. 11. Tamsulosin 0.4 mg p.o. daily. PHYSICAL EXAMINATION: General: She is doing much better, awake, alert, oriented. Vital Signs: Blood pressure of 101/82, heart rate of 62, and O2 saturation of 91%. HEENT: Anicteric sclerae. Normocephalic. Neck: Supple. No JVD. Chest and Lungs: Symmetric expansion. Clear breath sounds. Heart: Without murmur. Abdomen: Soft and nontender. Extremities: No edema. LABORATORY DATA: Hemoglobin 11.3, WBC 7600, and platelet count 312,000. Sodium 131, potassium 4.5, chloride 95, CO2 of 31.6, BUN 12, creatinine 1, and calcium 8.3. ASSESSMENT: 1. Acute on chronic hyponatremia, most likely secondary to syndrome of inappropriate antidiuretic hormone secretion from abdominal pain, now improved. 2. Chronic hyponatremia secondary to syndrome of inappropriate antidiuretic hormone secretion due to Wellbutrin or bupropion and norepinephrine-dopamine reuptake inhibitor agent causing hyponatremia due to syndrome of inappropriate antidiuretic hormone secretion. 3. History of atrial fibrillation, on Eliquis. 4. Bladder stone with urinary tract infection. 5. Right kidney stone. 6. Current smoker. 7. Chronic obstructive pulmonary disease. PLAN: I agree with stopping salt tablets for now and start her on fluid restriction at 1200 mL per day. Continue monitoring serum sodium. The patient is out of danger in terms of her hyponatremia at this point. DT: 16:23:51 TT: 17:33:00 Ref: [id number] - TID: [id number] MTDD
[2024-08-02] MEDS: HYDROmorphone INJ 2 MG/ML VIAL 1 MG IVP (17:59)
[2024-08-02] MEDS: APIXABAN 2.5 MG TABLET 5 MG PO (20:54)
--- NOTE | 2024-08-02 23:27 | PC.NURSE ---
O2 titrated down to 2L NC, oxygen sats at 96%.
[2024-08-03] VITALS (12 sets, daily range): BP systolic 103–148; BP diastolic 50–80; PULSE 85–191; RESP 16–24; TEMP 35.9–36.2; O2SAT 95–100; BMI 13.0
[2024-08-03] MEDS: HYDROmorphone INJ 2 MG/ML VIAL 1 MG IVP ×5 (00:24→23:00)
--- NOTE | 2024-08-03 01:26 | UCCONSULT_ITS ---
RE: BHASKAR TABARES : 1955 DATE OF CONSULTATION: 08/02/2024 CHIEF COMPLAINT: Abdominal pain. ESTABLISHED DIAGNOSES: 1. Hypertension. 2. Hyperlipidemia. 3. Atrial fibrillation, on Eliquis. 4. History of COPD. HISTORY OF PRESENT ILLNESS: This is a 68-year-old female. She was admitted in the hospital through the emergency room. She has a history of abdominal pain of one week's duration. Denies any fever or chills. In the past, the patient has history of bladder stone. The patient is also a smoker. . She is 3, para 2, one miscarriage. She is status post hysterectomy. This patient had placement of pubovaginal sling and she has mixed urinary incontinence. She is on Myrbetriq 50 mg p.o. daily and Estrace vaginal cream 2 g per vagina twice a week. MEDICAL HISTORY: As enumerated above. SURGICAL HISTORY: Status post hysterectomy, wrist bilateral surgery, recent back surgery four months ago in [facility] ([facility] ALLERGIES: NO KNOWN ALLERGIES. DESCRIPTION OF PROCEDURE: In the emergency room, the patient was hypertensive with blood pressure of 161/92, pulse rate 76, respiratory 24, afebrile. The patient was started on 2 L of oxygen nasal cannula. Her WBC is 11.4, serum sodium is 119, chloride 87, creatinine 1.4, BUN is 13. Urine was positive for leukocyte esterase, pyuria, and bacteriuria. The patient was started on antibiotics and urine for culture sensitivity was sent. She has a CAT scan of the abdomen and pelvis done. This showed: Primary hepatocellular disease. A 2 mm stone, right kidney, nonobstructive and small right renal cyst and abdominal aortic aneurysm. She has 9 mm calcification within the bladder. Past medical history, family history, and review of the system, personal history, please refer to the patient history form dated 07/31/2024, it is in HPI in EMR. PHYSICAL EXAMINATION: Vital Signs: Stable. The patient is lying in the bed comfortably and she is n.p.o. She is going to have a HIDA scan done this afternoon. RECOMMENDATIONS: From urology point of view, 1. Urinary tract infection. Treat according to the culture sensitivity with antibiotics. 2. Stone in the bladder. My recommendation is cystoscopy, laser stone fragmentation, stone evacuation. This will be done when the patient is stable and she is off anticoagulants, which is Eliquis. All above issues were discussed with the patient in great detail. At this time, she is very upset because she is n.p.o. and I tried to explain to her about the procedure, but she refused to pay attention. She will be scheduled for the above procedure through my office. DT: 16:12:14 TT: 22:17:00 Ref: [id number] - TID: [id number]
--- NOTE | 2024-08-03 02:00 | PC.NURSE ---
PT SELF REMOVED OXYGEN, ON ROOM AIR WITH O2 SATS AT 78%. PLACED BACK ON 3L NC. O2 SATS AT 96%
[2024-08-03 05:49] LABS: Basophils % (Auto) 0 % (0-2.5); Eosinophils # (Auto) 0.1 Thou/mm3 (0.0-0.5); Eosinophils % (Auto) 1 % (0-10); Hematocrit 37.8 % (36.0-46.0); Hemoglobin 11.5 g/dL (12.0-16.0); Immature Granulocytes % (Auto) 0 % (0-0); Immature Granulocytes Auto 0.04 Thou/mm3 (0.00-0.00); Lymphocytes # (Auto) 2.5 Thou/mm3 (1.0-4.8); Lymphocytes % (Auto) 22 % (10-50); Mean Corpuscular HGB Conc 30.4 g/dl (31.0-37.0); Mean Corpuscular Volume 86 fL (80-100); Monocytes # (Auto) 1.4 Thou/mm3 (0.0-0.8); Monocytes % (Auto) 12 % (0-12); Neutrophils # (Auto) 7.4 Thou/mm3 (1.8-7.7); Neutrophils % (Auto) 65 % (37-80); Nucleated Red Blood Cell % 0 /100 WBC (0); Platelet Count 311 Thou/mm3 (140-440); Red Blood Count 4.42 Miln/mm3 (4.00-5.20); White Blood Count 11.5 Thou/mm3 (3.6-11.0)
[2024-08-03 06:16] LABS: Alanine Aminotransferase 14 U/L (10-49); Albumin/Globulin Ratio 1.9 (1.2-2.2); Alkaline Phosphatase 121 U/L (46-116); Anion Gap 4 (7-16); Aspartate Amino Transferase 15 U/L (0-34); BUN/Creatinine Ratio 14 Ratio (12-20); Bilirubin,Total 0.2 mg/dL (0.3-1.2); Blood Urea Nitrogen 13 mg/dL (9-23); Calcium 8.7 mg/dL (8.3-10.6); Calcium (Corrected) 8.7 mg/dL (8.5-10.1); Carbon Dioxide 33.3 mMol/L (20.0-31.0); Cardiac Risk Estimate 4.4 RATIO (3.7-5.6); Chloride 95 mMol/L (98-107); Cholesterol 177 mg/dL (132-200); Creatinine (Component) 0.9 mg/dL (0.6-1.3); Estimated Creatinine Clearance 65.2 mL/min (>60); Globulin 2.1 gm/dL (2.3-3.5); Glucose 91 mg/dL (74-106); HDL Cholesterol 40 mg/dL (40-60); LDL Cholesterol,Calculated 124 mg/dL (0-130); Osmolality,Calculated 264 (275-295); Phosphorous 2.6 mg/dL (2.4-5.1); Potassium 4.5 mMol/L (3.4-5.1); Sodium 132 mMol/L (136-145); Total Protein 6.1 gm/dL (5.7-8.2); Triglycerides 63 mg/dL (30-150); eGFR > 60 See Note
[2024-08-03] MEDS: APIXABAN 2.5 MG TABLET 5 MG PO ×2 (08:15→20:54)
[2024-08-03] MEDS: TAMSULOSIN HCL 0.4 MG CAPSULE PO (08:15)
[2024-08-03] MEDS: CHOLECALCIFEROL (Vitamin D3) 400 IU TABLET PO (08:15)
[2024-08-03] MEDS: LEVOFLOXACIN/D5W 750MG IVPB 750 MG/150 ML BAG 100 MG IV (08:16)
--- NOTE | 2024-08-03 09:06 | PC.SS ---
SS was informed by Team A that patient will need home. SS submitted 02 inquiry through [employer].
--- NOTE | 2024-08-03 11:17 | PC.SS ---
SS spoke to patient in regards to PT recommending SNF. Patient reported she would like to go home with HH. SS informed patient that SNF would be the best option for her, however patient is refusing SNF. Patient does not have a HH agency preference. SS will stand by for further needs.
[2024-08-03] MEDS: HYDROcodone/APAP 5/325 TABLET 1 TAB PO ×2 (12:03→20:54)
--- NOTE | 2024-08-03 12:20 | PC.SS ---
Addendum entered by Liberty White 08/03/24 14:32: SS contacted [facility] and they reported that patient's daughter, July had picked up the 02. SS contacted patient's daughter, July and she informed SS she was at work and would not be able to provide transportation until 6PM. SS informed patient's nurse Siri. Original Note: SS follow up note; [facility] will be delivering 02 at bedside within 2-3 hrs.
--- NOTE | 2024-08-03 13:21 | ESDS_ITS ---
<Statement entered by Tony Meeks MD - 08/03/24 14:54> Patient was seen and examined at the bedside. Patient was medically stable to be discharged today. She was advised to stop bupropion and follow-up with her care provider for further evaluation. She was advised to continue Levaquin 750 mg once a day for completing antibiotic course. She was also given tamsulosin 0.4 mg once for passing bladder stone. Lidocaine patch was given for back pain. We held home metoprolol succinate, she was advised to follow-up with urologist, Dr. Pedroza as outpatient for outpatient cystoscopy. She was recommended to follow-up with PCP within a week. All labs and orders were reviewed. I saw and examined the patient, and I agree with current management stated by Dr Angelina MD,PGY1. Plan of care was discussed with the attending physician and resident physician. Disclaimer: Despite multiple revisions, due to the dictation software being used, the document bellow may not be free of grammatical errors including phonetic/typographic errors. However, this does not deter from our commitment to providing health care in the patient's best interest in mind. Dr. Constantino MD, PGY 2 Planned Discharge Date 08/03/24 DS: Providers Provider Date of admission: 07/31/24 20:45 Primary care physician: Adama Pugh Admitting Provider: Chris Jones MD Attending Provider on Admission: Magen Joyce DO Consults: 07/31/24 20:48 Consult to Nephrology Routine Comment: hyponatremia Consulting Provider: Sunitha Guaman 08/01/24 13:32 Consult to Urology Routine Comment: 9mm bladder stone Consulting Provider: Driss Pedroza 08/03/24 07:55 PT [Referral Physical Therapy] Routine Comment: Physician Instructions: Attending Provider on DC: Kassandra Alfaro MD Discharging Provider: Kassandra Alfaro MD DS: Diagnosis Problem List Completed Was Problem List Reviewed/Reconciled?: Yes Hospital Course Hospital Course Hospital course: Patient is 67 year old female with past medical history of HTN, HLD, COPD-not on home oxygen, w/ 40+ year tabacoo use, history of dysphagia, hx of major depression, GERD, hiatal hernia, esophageal strictures s/p dilation, hemorroids, and mixed urinary incontinence (on Myrbetriq 50 mg PO daily) w/ previous history of bladder stones (2019) who was admitted for hyponatremia and UTI. No overnight events reported for patient. Patient denied abdominal pain this morning, but patient continues to report back tenderness, specifically right costal vertebral tenderness. Patient denied any pyrexia or chills overnight. Patient has not noted any passage of kidney stone. Positive for dysuria. Family at bedside. Chest chest pain or shortness of breath. *Patient's Discharge was canceled as patient developed atrial fibrillation w/ rvr prior to discharge and had to remained hospitalized. Please see progress note for same date. DC summary CANCELED. Time Spent with Patient Time attestation: Total time spent providing and/or coordinating discharge services: Exam Vital Signs Temp Pulse Resp BP Pulse Ox O2 Del Method O2 Flow Rate 97.0 F 99 16 115/80 95 Nasal Cannula 3 08/03/24 12:00 08/03/24 12:00 08/03/24 12:00 08/03/24 12:00 08/03/24 12:00 08/03/24 12:00 08/03/24 12:00 Discharge Plan Plan Patient Disposition: Left Against Medical Advice Patient condition on transfer: Stable Care Plan Goals: -STOP Bupropion 75 mg oral TID, and follow up with provider for further recommendations -Please continue levofloxcin 750 mg oral once per day for 5 days to complete antibiotic course -Please continue new medication tamsulosin 0.4 mg oral once a day. -Lidocaine patch 5% for back pain once per day as needed -Please continue the rest of your home medicaiton -HOlD home medication of metoprolol succinate 25 mg oral three times a day until it is confirmed that it is part of your home medication list with primary care provider -Please follow up with Dr. Pedroza as outpatient for your kidney stones and bladder stones as soon as possible -Home with home oxygen -Please follow up with your primary care provider within one week form discharge -If your symptoms worsen please seek medical attention immediately via ER. -if you do not have a Primary Care Provider[facility] [address] [address] [place] [address]; Phone Prescriptions/Referrals Prescriptions/Med Rec: New lidocaine 5 % Adhesive Patch,Medicated 1 patch top UD PRN (Reason: backPain) Qty: 15 0RF tamsulosin 0.4 mg Capsule 0.4 mg PO QDAY 30 Days Qty: 30 0RF Continued ursodiol 500 mg tablet 250 mg PO TID Eliquis 5 mg tablet 5 mg PO BID diltiazem HCl 120 mg capsule,extended release 12 hr 120 mg PO QDAY aspirin 81 mg tablet,delayed release (DR/EC) 81 mg PO QDAY pantoprazole 40 mg Tablet,Delayed Release (Dr/Ec) 40 mg PO QDAY potassium chloride 20 mEq packet 20 meq PO QDAY Qty: 5 0RF mirabegron [Myrbetriq] 50 mg tablet extended release 24 hr 50 mg PO QDAY Trelegy Ellipta 200-62.5-25 mcg blister with device 1 inh INHALATION QDAY Caltrate 600 plus D 600 mg-20 mcg (800 unit) Tablet,Chewable 1 tab PO QAM lisinopril 5 mg tablet 5 mg PO QDAY albuterol sulfate 90 mcg/actuation HFA aerosol inhaler 1 mcg INHALATION TID PRN (Reason: Shortness Of Breath Or Wheezing) cetirizine 10 mg tablet 10 mg PO QDAY alendronate 70 mg tablet 70 mg PO QWEEK furosemide 20 mg tablet 20 mg PO QDAY Discontinued bupropion HCl 75 mg tablet 75 mg PO TID Rx Instructions: administer 6 hours apart metoprolol succinate 25 mg tablet extended release 24 hr 25 mg PO TID Referrals: Driss Pedroza MD [Physician] - Sunitha Guaman MD [Physician] - Adama Pugh [Primary Care Provider] - Patient/Caregiver Discharge Instructions Education Materials: Understanding Urinary Tract ..., Hyponatremia Dc Print Language: Haitian Stand Alone Forms: Wanda Award Info., Patient Portal Info Letter Quality Discharge Quality Measures VTE prophylaxis
--- NOTE | 2024-08-03 16:38 | EKG_ITS ---
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 : 1955 Requested By: Katelynn Alonzo Order Number: [id number] Reading MD: Katelynn Alonzo Measurements Intervals [place] Rate: 151 P: PA: QRS: 101 QRSD: 82 T: 20 QT: 309 QTc: 491 Interpretive Statements ATRIAL FLUTTER/TACHYCARDIA WITH RAPID VENTRICULAR RESPONSE POSSIBLE RIGHT VENTRICULAR HYPERTROPHY ST DEVIATION AND MODERATE T-WAVE ABNORMALITY, CONSIDER ANTEROLATERAL ISCHEMIA Compared to ECG 07/31/2024 15:50:23 T-wave abnormality now present Possible ischemia now present Junctional rhythm no longer present Ventricular premature complex(es) no longer present ST (T wave) deviation no longer present /store/S0/[id number]/ecg/[id number].pdf
--- NOTE | 2024-08-03 16:50 | EVENTNT_ITS ---
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 Stat EKG ordered. At bedside, patient complaining of chronic back pain, no change. HR fluctuating between 96- 160. EKG showed AFib with anterolateral ischemia. Stat troponin ordered. Home metoprolol and diltiazem resumed. Labs reviewed, K 4.5, Mag 1.8 (07/31). 2g Magnesium sulfate ordered as QTc 491. Remainder of VS wnl. Patient seen and care discussed with my attending Dr. Puentes. Katelynn Alonzo MD PGY-3
[2024-08-03] MEDS: DILTIAZEM CD 120 MG CAPCR PO (16:57)
[2024-08-03] MEDS: Magnesium Sulfate 2 GM Ivpb 2 GM/50 ML BAG IV (17:04)
[2024-08-03] MEDS: MORPHINE SULF INJ 10 MG/ML VIAL 2 MG IVP (17:04)
--- NOTE | 2024-08-03 17:12 | XR_ITS ---
Examination: AP chest single view Technique one AP portable upright chest single view Exam date and time: August 03, 2024 1730 hours Comparison July 31, 2024 INDICATIONS: Shortness of breath this week. FINDINGS: Mild enlargement cardiac contour Significant vascular congestion Atelectasis and/or scarring at the left lung base Prominent osteopenia with kyphoplasty upper dorsal spine IMPRESSION: Significant vascular congestion
[2024-08-03 17:45] LABS: Troponin I < 0.020 ng/mL (0.0-0.045)
--- NOTE | 2024-08-03 18:00 | PD.IMCONS ---
Documented by User: Alfredo Petersen MD 08/04/24 22:01 HPI Data of Consult Consult date: 08/03/24 Requesting Physician: Magen Joyce DO Primary Care Provider: Adama Pugh Consult Narrative cc:: cc: Magen Joyce, DO Meds Home Medications and Allergies Home Medications ?Medication ?Instructions ?Recorded ?Confirmed ?Type ursodiol 500 mg tablet 250 mg PO TID 01/10/20 08/01/24 History pantoprazole 40 mg tablet,delayed 40 mg PO QDAY 03/06/20 08/01/24 History release albuterol sulfate 90 mcg/actuation 1 mcg inhalation TID PRN Shortness 10/14/23 05/25/24 History aerosol inhaler Of Breath Or Wheezing calcium 600 mg (as carbonate)-vit 1 tab PO QAM 10/14/23 08/01/24 History D3 20 mcg (800 unit) chewable tablet (Caltrate plus D) fluticasone fur. 200 mcg-umeclid 1 inh inhalation QDAY 10/14/23 08/01/24 History 62.5 mcg-vilant 25 mcg inhalat.powder (Trelegy Ellipta) lisinopril 5 mg tablet 5 mg PO QDAY 10/14/23 08/01/24 History mirabegron 50 mg tablet,extended 50 mg PO QDAY 10/14/23 08/01/24 History release 24 hr (Myrbetriq) apixaban 5 mg tablet (Eliquis) 5 mg PO BID 01/26/24 08/01/24 History aspirin 81 mg tablet,delayed 81 mg PO QDAY 01/26/24 08/01/24 History release diltiazem HCl 120 mg 120 mg PO QDAY 01/26/24 08/01/24 History capsule,extended release 12 hr alendronate 70 mg tablet 70 mg PO QWEEK 05/25/24 08/01/24 History cetirizine 10 mg tablet 10 mg PO QDAY 05/25/24 08/01/24 History furosemide 20 mg tablet 20 mg PO QDAY 05/25/24 05/25/24 History Allergies Allergy/AdvReac Type Severity Reaction Status Date / Time No Known Allergies Allergy Verified 07/31/24 14:53 Exam Vital Signs Temp Pulse Resp BP Pulse Ox O2 Del Method O2 Flow Rate 97.2 F 90 23 H 122/58 L 94 L Nasal Cannula 3 08/04/24 04:00 08/04/24 05:57 08/04/24 04:00 08/04/24 05:57 08/04/24 04:00 08/03/24 16:00 08/03/24 19:57 Results Labs 08/04/24 04:10 08/04/24 04:10 Labs: Short CBC 08/04/24 Range/Units 04:10 WBC 9.2 (3.6-11.0) Thou/mm3 Hgb 12.1 (12.0-16.0) g/dL Hct 39.9 (36.0-46.0) % Plt Count 302 (140-440) Thou/mm3 BMP 08/04/24 04:10 Sodium 133 L Potassium 4.2 Chloride 94 L Carbon Dioxide 33.6 H BUN 13 Creatinine 0.8 Glucose 97 Calcium 9.0 Cardiac Enzymes 08/03/24 Range/Units 17:01 Troponin I < 0.020 (0.0-0.045) ng/mL Liver Function 08/04/24 Range/Units 04:10 Total Bilirubin 0.3 (0.3-1.2) mg/dL AST 17 (0-34) U/L ALT 13 (10-49) U/L Alkaline Phosphatase 118 H (46-116) U/L Albumin 4.2 (3.4-4.8) gm/dL Assessment and Plan Additional Assessment & Plan Additional Plan: 68-year-old female with past medical history of atrial fibrillation on Eliquis, COPD, hypertension, dysphagia, depression, GERD, esophageal strictures s/p dilation, right renal cyst, and urinary incontinence was admitted to the hospital on 07/31/2024 due to hyponatremia. 1. Atrial fibrillation with RVR 2. Hypertension 3. COPD ?Patient has a history of A-fib and she was on diltiazem 120 mg daily as well as Eliquis ? Patient came in initially rhythm control, but experienced A-fib with RVR on 08/03/2024 ? Patient blood pressure has been well-controlled during her hospital stay ?[id number] Score of 3 points indicating 3.2% stroke risk ?HAS-BLED score of 2 points indicating moderate risk of major bleeding ?Echo done on 07/31/2024 by on-call photofinishing laboratory worker had the following findings: Limited study. Patient refused Normal LV size and function. Estimated EF 60-65% Normal RV size and function. Mild AI. Mild AV sclerosis. Trace TR. Plan: ?Recommend to continue patient's amio drip for now and once Amio drip has finished continue diltiazem CD 120 mg daily ?Recommend diltiazem CD1 20 mg x 1 today ?Recommend to continue Eliquis 5 mg twice daily ?Given the patient has COPD diltiazem is a better choice of treatment. ?Recommend to keep potassium magnesium above 4 and 2 respectively to avoid any further arrhythmias 4. Hypoosmolar hyponatremia 5. Nephrolithiasis 6. Complicated UTI 7. KAMALJIT 8. Hyperlipidemia 9. Primary hepatocellular disease ?Continue current management as per primary care team Continue rest of management as per primary team. We are grateful to be able to participate in Mrs. Nugent's care. Thank you for the consult Plan of care discussed with attending Security System Engineer, Dr. Nicola Perez MD PGY-1 I have personally seen and examined the patient separately on the above date of service and discussed the plan of care with the resident. I reviewed the resident Dr. Starks consultation progress note and agree with the resident findings and plan in the note above and have also edited the documentation to reflect my findings and plan. Cardiology was consulted for atrial fibrillation with RVR this evening at 6 PM and review of the chart showed that patient was admitted for severe hyponatremia which was slowly improving and the primary team was planning for discharge the sodium returned to 132. This evening patient went to atrial fibrillation with RVR at 150 bpm. Review of the chart showed that the patient was on Cardizem CD 120 mg once daily for paroxysmal atrial fibrillation with RVR which was diagnosed 6 to 9 months ago earlier this year and she does follow-up with a photofinishing laboratory worker in [place]. Patient is also on anticoagulation with Eliquis. Unclear why the Cardizem was held for the patient. Recommended to give Cardizem CD 120 mg x 1 YEIMI for the patient and also started the patient on Cardizem drip as patient's blood pressure is still above 100 mmHg.. Patient was given IV dose of metoprolol but patient does have severe COPD with significant wheezing and has more than 30 pack years of smoking history and still continues to smoke. Avoid beta-blockers because of the worsening of COPD exacerbation. Patient is also not an ideal candidate for amiodarone long-term given her history of the COPD. Recommend to control. With diltiazem. EKG showed normal sinus rhythm on admission and she has paroxysmal atrial fibrillation she should continue on Eliquis 5 mg twice daily and patient cannot be on beta-blockers and continue Cardizem CD 120 mg once daily. Patient was rate controlled should follow-up in outpatient with cardiology and if patient still continues to be in atrial fibrillation then eventually cardioversion can be performed after being on Eliquis for 3 to 4 weeks after doing a SYL. Okay to continue Cardizem as the recent echocardiogram showed normal LV function Patient recommended to quit smoking completely. Management of rest of the medical conditions as per primary team and other consultants. Thank you for the consult and allowing me to participate in the care of the patient. Cardiology will continue to follow. Alfredo Petersen M.D. Interventional Cardiology Documented by User: Lucio Perez MD 08/04/24 17:06 HPI Consult Narrative Reason for consult: A-fib with RVR History of present illness: 68-year-old female with past medical history of atrial fibrillation on Eliquis, COPD, hypertension, dysphagia, depression, GERD, esophageal strictures s/p dilation, right renal cyst, and urinary incontinence was admitted to the hospital on 07/31/2024 due to hyponatremia. In ED patient came in with complaints of abdominal pain which progressed for 1 week prior to admission. Initially patient was hypertensive, tachypneic, and afebrile. Initial labs were relevant for WBC 11.4, Hgb 13, sodium 119, potassium 4.2, chloride 84, BUN 13, creatinine 1.4, alkaline phosphatase 150, and UA was positive for bacteria. Initial imaging included abdominal ultrasound which showed some gallbladder wall thickening and abdomen/pelvis CT which showed hepatocellular disease, 2 mm right renal calculus, 7 cm right renal cyst, abdominal aortic aneurysm measuring 3.9 cm, and 9 mm calculi in the urinary bladder. Additional imaging included chest x-ray which showed early heart failure, renal ultrasound which showed lower pole right renal cyst measuring 6.8 cm and bilateral renal parenchymal scar formation, and HIDA scan which showed a gallbladder ejection fraction of 24%. Initial EKG showed junctional rhythm with PVCs, repeat EKG on 08/03/2024 did not show atrial fibrillation with RVR. Echo done on 07/31/2024 by on-call photofinishing laboratory worker had the following findings: Limited study. Patient refuse. Normal LV size and function. Estimated EF 60-65% Normal RV size and function. Mild AI. Mild AV sclerosis. Trace TR. During my assessment patient was in significant pain this was likely due to her nephrolithiasis. Patient is a poor historian. Patient states she has been having abdominal pain and urinary symptoms for around 1 week prior to coming to the hospital. She also mentioned that she had some chest pain which she described mostly as tenderness and was worse with palpation. She also stated that she had been feeling short of breath on exertion and having some palpitations. Patient stated that she mostly came to the hospital because of the abdominal pain. Patient is an active smoker and states she only smokes 1 to 2 cigarettes/day. She does have family history relevant for father with A-fib and brother who had CABG done. Patient has a history of A-fib and is on Eliquis as well as diltiazem CD 120 mg daily at home, but patient did not receive any diltiazem during her hospital course. On the day that patient was supposed to be discharged she went into A-fib with RVR likely triggered by pain. She was placed on diltiazem drip, but was shortly after discontinued by night team and she was placed on amiodarone drip. PMH:atrial fibrillation on Eliquis, COPD, hypertension, dysphagia, depression, GERD, esophageal strictures s/p dilation, right renal cyst, and urinary incontinence FMH: Father had A-fib and brother had CABG done Social Hx: Admits to social alcohol, admits to smoking 1 to 2 cigarettes/day, denies any drugs Surgical Hx: Left hand surgery and Review of Systems Review of Systems Narrative Review of Systems: Constitutional: Denies sweats, Denies weight loss/gain, Denies fever, Denies chills. HEENT: Denies hearing loss, Denies ear pain, Denies postnasal drip, Denies double vision, Denies blurry vision. Respiratory: Admits shortness of breath, Denies cough, Denies wheezing. Cardiovascular: Admits chest pain, Admits palpitations, Denies sudden loss of consciousness. GI: Denies blood in stool, Denies constipation, Admits abdominal pain, Denies difficulty swallowing, Denies nausea or vomit. : Denies urinary incontinence, Denies pain while urinating, Denies increased urinary frequency. MSK: Denies joint pain, Denies joint swelling, Denies numbness. Skin: Denies rash, Denies itching, Denies easy bruising. Neuro: Denies headaches, Denies dizziness, Denies seizures. Past Medical History Past Medical History Comments PMH COMMENT: PMH:atrial fibrillation on Eliquis, COPD, hypertension, dysphagia, depression, GERD, esophageal strictures s/p dilation, right renal cyst, and urinary incontinence FMH: Father had A-fib and brother had CABG done Social Hx: Admits to social alcohol, admits to smoking 1 to 2 cigarettes/day, denies any drugs Surgical Hx: Left hand surgery and Meds Home Medications and Allergies Home Medications ?Medication ?Instructions ?Recorded ?Confirmed ?Type ursodiol 500 mg tablet 250 mg PO TID 01/10/20 08/01/24 History pantoprazole 40 mg tablet,delayed 40 mg PO QDAY 03/06/20 08/01/24 History release albuterol sulfate 90 mcg/actuation 1 mcg inhalation TID PRN Shortness 10/14/23 05/25/24 History aerosol inhaler Of Breath Or Wheezing calcium 600 mg (as carbonate)-vit 1 tab PO QAM 10/14/23 08/01/24 History D3 20 mcg (800 unit) chewable tablet (Caltrate plus D) fluticasone fur. 200 mcg-umeclid 1 inh inhalation QDAY 10/14/23 08/01/24 History 62.5 mcg-vilant 25 mcg inhalat.powder (Trelegy Ellipta) lisinopril 5 mg tablet 5 mg PO QDAY 10/14/23 08/01/24 History mirabegron 50 mg tablet,extended 50 mg PO QDAY 10/14/23 08/01/24 History release 24 hr (Myrbetriq) apixaban 5 mg tablet (Eliquis) 5 mg PO BID 01/26/24 08/01/24 History aspirin 81 mg tablet,delayed 81 mg PO QDAY 01/26/24 08/01/24 History release diltiazem HCl 120 mg 120 mg PO QDAY 01/26/24 08/01/24 History capsule,extended release 12 hr alendronate 70 mg tablet 70 mg PO QWEEK 05/25/24 08/01/24 History cetirizine 10 mg tablet 10 mg PO QDAY 05/25/24 08/01/24 History furosemide 20 mg tablet 20 mg PO QDAY 05/25/24 05/25/24 History Allergies Allergy/AdvReac Type Severity Reaction Status Date / Time No Known Allergies Allergy Verified 07/31/24 14:53 Exam Vital Signs Temp Pulse Resp BP Pulse Ox O2 Del Method O2 Flow Rate 97.2 F 90 23 H 122/58 L 94 L Nasal Cannula 3 08/04/24 04:00 08/04/24 05:57 08/04/24 04:00 08/04/24 05:57 08/04/24 04:00 08/03/24 16:00 08/03/24 19:57 Narrative Exam General: A/O x3, mild distress, obese Eyes: PERRL, EOMI. Anicteric, vision grossly intact. Ears: No ear pain, no ear discharge, Hearing grossly intact. Nose: No nasal discharge. Mouth/Throat: dry mucous membranes, no redness, no lesions. Neck: short Neck , non-tender, no cervical lymphadenopathy. Lungs: Mild wheezing GREGORY, No accessory muscle use. Cardio: Normal S1/S2, irregularly irregular , no murmurs, no JVD assessed Abdomen: Soft, left flank pain, no palpable masses, peristalsis present, no guarding or rebound. Extremities: Symmetrical, no significant deformities, no peripheral edema , non-tender, peripheral pulses presents. Skin: No rashes, no lesions, warm to touch. Neuro: No focal neurological deficits. motor and sensory intact Psych: irritable Results Labs 08/04/24 04:10 08/04/24 04:10 Labs: Short CBC 08/04/24 Range/Units 04:10 WBC 9.2 (3.6-11.0) Thou/mm3 Hgb 12.1 (12.0-16.0) g/dL Hct 39.9 (36.0-46.0) % Plt Count 302 (140-440) Thou/mm3 BMP 08/04/24 04:10 Sodium 133 L Potassium 4.2 Chloride 94 L Carbon Dioxide 33.6 H BUN 13 Creatinine 0.8 Glucose 97 Calcium 9.0 Cardiac Enzymes 08/03/24 Range/Units 17:01 Troponin I < 0.020 (0.0-0.045) ng/mL Liver Function 08/04/24 Range/Units 04:10 Total Bilirubin 0.3 (0.3-1.2) mg/dL AST 17 (0-34) U/L ALT 13 (10-49) U/L Alkaline Phosphatase 118 H (46-116) U/L Albumin 4.2 (3.4-4.8) gm/dL Assessment and Plan Additional Assessment & Plan Additional Plan: 68-year-old female with past medical history of atrial fibrillation on Eliquis, COPD, hypertension, dysphagia, depression, GERD, esophageal strictures s/p dilation, right renal cyst, and urinary incontinence was admitted to the hospital on 07/31/2024 due to hyponatremia. 1. Atrial fibrillation with RVR 2. Hypertension 3. COPD ?Patient has a history of A-fib and she was on diltiazem 120 mg daily as well as Eliquis ? Patient came in initially rhythm control, but experienced A-fib with RVR on 08/03/2024 ? Patient blood pressure has been well-controlled during her hospital stay ?[id number] Score of 3 points indicating 3.2% stroke risk ?HAS-BLED score of 2 points indicating moderate risk of major bleeding ?Echo done on 07/31/2024 by on-call photofinishing laboratory worker had the following findings: Limited study. Patient refuse. Normal LV size and function. Estimated EF 60-65% Normal RV size and function. Mild AI. Mild AV sclerosis. Trace TR. Plan: ?Recommend to continue patient's amnio drip for now and once Amio drip has finished continue diltiazem CD 120 mg daily ?Recommend diltiazem CD1 20 mg x 1 today ?Recommend to continue Eliquis 5 mg twice daily ?Given the patient has COPD diltiazem is a better choice of treatment. ?Recommend to keep potassium magnesium above 4 and 2 respectively to avoid any further arrhythmias 4. Hypoosmolar hyponatremia 5. Nephrolithiasis 6. Complicated UTI 7. KAMALJIT 8. Hyperlipidemia 9. Primary hepatocellular disease ?Continue current management as per primary care team Continue rest of management as per primary team. We are grateful to be able to participate in Mrs. Nugent's care. Thank you for the consult Plan of care discussed with attending Security System Engineer, Dr. Nicola Perez MD PGY-1
[2024-08-03] MEDS: METOPROLOL TARTRATE INJ 1 MG/ML AMP 5 ML 2.5 MG IVP (18:25)
[2024-08-03] MEDS: DILTIAZEM in D5W 125 MG 125 MG/125 ML BAG IV (19:24)
--- NOTE | 2024-08-03 19:36 | ESPR_ITS ---
<Statement entered by Tony Meeks MD - 08/04/24 07:38> I saw and examined the patient, and I agree with current management stated by Dr Angelina MD,PGY1. Plan of care was discussed with the attending physician and resident physician. Disclaimer: Despite multiple revisions, due to the dictation software being used, the document bellow may not be free of grammatical errors including phonetic/typographic errors. However, this does not deter from our commitment to providing health care in the patient's best interest in mind. Dr. Constantino MD, PGY 2 Documentation for date of: 08/03/24 Subjective Subjective Interval history: Patient is 67 year old female with past medical history of HTN, HLD, COPD-not on home oxygen, w/ 40+ year tabacoo use, history of dysphagia, hx of major depression, GERD, hiatal hernia, esophageal strictures s/p dilation, hemorroids, and mixed urinary incontinence (on Myrbetriq 50 mg PO daily) w/ previous history of bladder stones (2019) who was admitted for hyponatremia and UTI. Patient was scheduled for discharge on 08/03/2024 but experienced a rapid response shortly prior to daughter picking patient up from hospital. Pateint experienced Afib w/ RVR. Diltiazem home dose given. Denied chest pain. Post rapid, in addition Metoprolol 2.5 mg IV X 1 and patient then started on diltiazem drip with perameters to hold medication if BP<90/60. Cardiology consulted. Exam Vital Signs Temp Pulse Resp BP Pulse Ox O2 Del Method O2 Flow Rate 96.6 F L 139 H 19 103/65 99 Nasal Cannula 3 08/03/24 16:00 08/03/24 19:24 08/03/24 16:00 08/03/24 19:24 08/03/24 16:00 08/03/24 16:00 08/03/24 16:00 Narrative Exam General Appearance: Alert & Oriented X3, well-nourished female who is lying in bed in no acute distress, post rapid patient appeared with increased perspiration secondary to costal vertebral pain. HEENT: Skull symmetrical and atraumatic. Conjunctivae pin and moist. Pupils equal, round, reactive to light and accommodation (PERRL). External ear without lesion or discharge. Straight, nares patient, mucosa pink, no discharge. Cardio: Tachycardia and Irregular w/ RVR with S1 and S2 heart sounds. No murmurs or extra heart sounds auscultated. No bruits on carotid auscultation. No peripheral edema or cyanosis. Lungs: Symmetric with good expansion. Chest and back non-tender. Breath sounds vesicular without crackles, wheezing or rhonchi Abdomen: Non-tender, Non-distended, Normal Reactive Bowel Sounds Neuro: Alert, cooperative, oriented to person, place, and time. Speech clear. CN grossly intact. Upper motor strength 5/5 and Lower motor strength 5/5. Sensation intact. Objective Labs 08/03/24 04:24 08/03/24 04:24 Labs: Laboratory Results - last 24 hr 08/03/24 08/03/24 04:24 17:01 WBC 11.5 H D RBC 4.42 Hgb 11.5 L Hct 37.8 MCV 86 MCH 26.0 MCHC 30.4 L RDW Std Deviation 45.0 Plt Count 311 Neut % (Auto) 65 Lymph % (Auto) 22 [place] % (Auto) 12 Eos % (Auto) 1 Baso % (Auto) 0 Neut # (Auto) 7.4 Lymph # (Auto) 2.5 [place] # (Auto) 1.4 H Eos # (Auto) 0.1 Baso # (Auto) 0.0 Immature Gran # (Auto) 0.04 H Absolute Nucleated RBC 0.00 Immature Gran % 0 Nucleated RBC % 0 Sodium 132 L Potassium 4.5 Chloride 95 L Carbon Dioxide 33.3 H Anion Gap 4 L BUN 13 Creatinine 0.9 Estim Creat Clear Calc 65.2 eGFR > 60 BUN/Creatinine Ratio 14 Glucose 91 Calculated Osmolality 264 L Calcium 8.7 Corrected Calcium 8.7 Phosphorus 2.6 Magnesium 2.0 Total Bilirubin 0.2 L AST 15 ALT 14 Alkaline Phosphatase 121 H Troponin I < 0.020 Total Protein 6.1 Albumin 4.0 Globulin 2.1 L Albumin/Globulin Ratio 1.9 Triglycerides 63 Cholesterol 177 LDL Cholesterol, Calc 124 HDL Cholesterol 40 Cholesterol/HDL Ratio 4.4 Quality Measures Quality Measures VTE prophylaxis Advance care planning discussed with:: patient Assessment & Plan Assessment Current Active Medications: Generic Name Dose Route Start Last Admin Trade Name Freq PRN Reason Stop Dose Admin Acetaminophen 650 mg 08/01/24 01:19 08/02/24 02:32 Acetaminophen 325 Mg Tablet PO 08/30/24 20:44 650 mg Q6H PRN Administration Pain 1-3 and Fever >100.3 Hydrocodone Bitart/Acetaminophen 1 tab 08/02/24 16:10 08/03/24 12:03 Hydrocodone/Apap 5/325 Tablet PO 08/07/24 16:09 1 tab Q4HR PRN Administration PAIN SCALE 4-6 (Moderate Apixaban 5 mg 08/01/24 09:00 08/03/24 08:15 Apixaban 2.5 Mg Tablet PO 08/31/24 08:59 5 mg BID NGA Administration Diltiazem HCl 120 mg 08/03/24 16:45 08/03/24 16:57 Diltiazem Cd 120 Mg Capcr PO 09/02/24 16:44 120 mg QDAY NGA Administration Hydromorphone HCl 1 mg 08/02/24 16:10 08/03/24 18:16 Hydromorphone Inj 2 Mg/Ml Vial IVP 08/07/24 16:09 1 mg Q4HR PRN Administration PAIN SCALE 7-10 (Severe Levofloxacin/Dextrose 750 mg in 150 mls @ 100 mls/hr 08/02/24 10:30 08/03/24 08:16 Levaquin Ivpb IV 08/09/24 10:29 100 mls/hr QDAY NGA Administration Diltiazem HCl 125 mg in 125 mls @ 5 mls/hr 08/03/24 19:00 08/03/24 19:24 Diltiazem In D5w 125 Mg IV 09/02/24 18:59 5 mg/hr .Q24H NGA 5 mls/hr Administration 5 MG/HR Ketorolac Tromethamine 15 mg 08/02/24 10:02 Ketorolac Inj 30 Mg/Ml Vial IVP 08/07/24 10:01 Q6HR PRN Breakthrough Pain Lidocaine 1 patch 08/01/24 18:11 08/02/24 08:15 Lidocaine 5% 1 Patch TOP 08/31/24 18:10 1 patch UD PRN Administration backPain Protocol Nicotine 7 mg 08/01/24 09:00 08/03/24 08:19 Nicotine Patch 7 Mg/24 Hr Patch.Td24 TOP 08/31/24 08:59 Not Given QDAY NGA Sodium Chloride 1 gm 08/01/24 22:15 08/02/24 00:09 Sodium Chloride 1 Gm Tablet PO 08/31/24 22:14 1 gm BID NGA Administration Tamsulosin HCl 0.4 mg 08/02/24 09:00 08/03/24 08:15 Tamsulosin Hcl 0.4 Mg Capsule PO 09/01/24 08:59 0.4 mg QDAY NGA Administration Vitamin D 400 iu 08/03/24 09:00 08/03/24 08:15 Cholecalciferol (Vitamin D3) 400 Iu Tablet PO 09/02/24 08:59 400 iu QDAY NGA Administration Plan Patient is 67 year old female with past medical history of HTN, HLD, COPD-not on home oxygen, w/ 40+ year tabacoo use, history of dysphagia, hx of major depression, GERD, hiatal hernia, esophageal strictures s/p dilation, hemorroids, and mixed urinary incontinence (on Myrbetriq 50 mg PO daily) w/ previous history of bladder stones who was admitted for hyponatremia and UTI. #Atrial Fibrillation, RVR Patient has a history of atrial fibrillation on Diltiazem-confirmed. Rapid response occurred prior to patient discharge for Afib w/ RVR. Diagnostics: EKG(07/31/2024): Junction Rythm with frequent Ventricular Premature Complexes Echo (07/2024): Echo (08/02/2024): Limited Study. Patient Refused. Normal LV size and function. Estimated EF 60-65%. MIld AI. Mild AV sclerosis. Trace TR. Plan -Eliquis 5 mg BID -Holding Diltiazem home medication -Diltiazem drip began post RR, hold if BP <90/60 -Keep K> 4 & Mg >2 -Cardiology consulted, appreciate recommendations #Renal Calculi, Right Kidney-non hydronephrosis #Nephrolithiasis #Renal Cyst #Vesicular Calculi Etiology: Patient previously prescribed calcium citrate, given previous history of bladder stones s/p laser stone fragmetnation on (03/12/2024) likely an chronic condition. Patient previous listed Hydrochlorothiazide listed as part of medication recently, possible that calcium oxalate stones secondary to medication. DDx: Caltrate 600 D3 also listed less likely as hypercalcium is not noted on chart vs dehydration causing increase in oxalate vs malabsorption 08/02/2024-Dr. Pedroza?recommended outpatient cystoscopy. 08/03/2024-Prior to discharge patient's pain was unremarkable, only with deep costal vertebral palpation did it worsen. Prior to discharge patient experienced increasing discomfort 10/10 pain. Discharge D/C Diagnostics: Abdomen US Negative for cholelithiasis. Gallbladder wall is thickened 0.43, consider HIDA or MRCP. Normal common bile duct. Liver normal size, fatty liver. Abdomen/Pelvis CT (07/31/2024): Primary hepatocellular disease, 2 mm right renal calculus, 7 cm right renal cyst , INfraumbical left hernia containing small bowel and right herning continating colon but no incarcerated bowel. 9 mm calcification consistent w/ calculus in the urinary bladder Renal U/S Moderate Bilateral renal parenchymal scar formation, lower power begining right renal cyst 6.8 cm. NO hydronephrosis Plan -Strain Urine -Tamulosin -Phenazophyridine 100 mg PO TIDWM PRN -Pain Management (Tylenol, Norc, and Dilaudid) -Urology Consulted, appreciate recommendations #Complicated UTI #Mild Leukocytosis Etiology: likely secondary to obstructive uropathy DDx: history of mixed incontinence and history of sling, thus underlying incontinence leading to UTI can not be excluded vs medcation side effects Diagnostics: UA Turbid, Blood 2+, Esterase +, WBC 40, bacteria + Urine Culture (08/02/2024): Proteus; senstive to levofloxacin & Cefotaxime Plan -Started (08/02/2024--) Levofloxacin 750 mg QDay -Ceftrixone (07/31/2024-08/02/2024) #Sever Hyponatremia, Hypo-osmolar, Hypovolemic, improved Etiology: given possible KAMALJIT with renal cyst consider renal failure with a more isovolemic presentation requiring water restrictions but may also responde to isotonic saline DDx: given polypharmacy, medication toxicity can not be ruled out vs pre-renal given increasing abdominal pain leading to decrease oral intake leading to pre- renal pattern. 08/02/2024: Per Dr. Guaman recommendations, Hyponatremia likely secondary to SIADH given Bupropion use for major depression in the setting of normal osmality on previous admissions and hyponatremia during that admission. Diagnostics: Na (07/31/2024) 119, Na (08/01/2023) 122/123;Serum omolaity 240 & 247 (08/02/2024): NA 130, 133, 131, Osmolality 260 Calculated Na Deficit =646.4 meq Plan -Pending Urine Na -Sodium started overnight,D/C on 08/02/2024 AM given sodium goal reached. -Consider Urine electrolytes to rule out RTA -Sodium correction 128 within the next 24 hours, Goal reached. -Q6 Sodium Checks, D/C 07/2024 -NS 1 L @70 cc, DC per Dr. Guaman recommendations -Consult Nephrology, Dr. Guaman, appreciate recommendations #HTN Home medication of lisinopril 5 mg, blood pressure soft Plan -Consider restarting home dose of Lisinopril 5 mg #Hyperlipidemia No hyerlipidemia medication listed, previously taking Atorvastatin per chart review from Dr. Correa Diagnostics: -Lipid Panel (10/14/2023): Triglycerides 41, Cholesterol 106, HDL 39 Plan -consider lipid panel #COPD Sandra has a past meical history of COPD no on oxygen on home. On trelegy and albuterol but not in COPD exacerbation. NO wheezing noted Plan -keep patient between 88%-92% spO2 if permitted given patient's past medical history of COPD -Consider adding Duonebs PRN #History of Major Depression Previously refilled bupropion and likely continues medication. Hold given likely causes of hyponatremia. Plan -Hold bupropion given hyponatremia. Mixed Incontinence -Myrbetriq 50 mg currenlty holding medication -Pending Urology #Primary Hepatocellular Disease Primary biliary cholangistis (PBC) can not be excluded as patient maybe taking ursodiol vs history of gallstones vs [facility] Diagnostics: Abdomen US Negative for cholelithiasis. Gallbladder wall is thickened 0.43, consider HIDA or MRCP. Normal common bile duct. Liver normal size, fatty liver. Abdomen/Pelvis CT (07/31/2024): Primary hepatocellular disease, 2 mm right renal calculus, 7 cm right renal cyst , INfraumbical left hernia containing small bowel and right herning continating colon but no incarcerated bowel. 9 mm calcification consistent w/ calculus in the urinary bladder (07/31/2024) AST 22, ALT 17, Alkaline Phosphatase 150-->(08/02/2024) AST 18 ALT 12, Alkaline Phosphatase 120 Plan -Consider GGT -No acute intervention #Tobacco Use Disorder Patient has a >40 year history Plan -Nicotine Patch Nga #KAMALJIT, likely intrinsic, resolved. Etiology: Likely secondary to intrinisc kidney injury given BUN/Cr ratio is <15, probably secondary to various kidney stones and renal calculi on right kidney DDx: Diagnostic -Renal U/S Moderate Bilateral renal parenchymal scar formation, lower power begining right renal cyst 6.8 cm. NO hydronephrosis Previous baseline 05/17/2024 BUN 10 Cr 1.0-->(08/02/2024) BUN 12, Cr 1.0, GFR >60, Plan -NS 1 L, D/C -avoid nephrotoxins -renally dose medication -gentle hydration #Abdominal Pain, Resolved #Asymptomatic Cholelithiasis Etiology: Patient is complain of diffuse abdominal pain, positive lane sign note during morning rounds, thus symptomatic cholelithiasis can not be ruled out. Ursodiol prescribed can be used to treat PBS and gallstones as well. DDx: patient does have a history of hiatal hernia which is large which would also be worsening abdominal pain vs history of diverticulosis from colonoscopy by dr. correa,per chart review (08/02/2024): Patient denied any abdominal pain and stated all her pain was from her back, at the costal vertebral area. Given asymptomatic, this is likely outpatient elective surgery. Diagnostics: Abdomen US Negative for cholelithiasis. Gallbladder wall is thickened 0.43, consider HIDA or MRCP. Normal common bile duct. Liver normal size, fatty liver. Abdomen/Pelvis CT (07/31/2024): Primary hepatocellular disease, 2 mm right renal calculus, 7 cm right renal cyst , INfraumbical left hernia containing small bowel and right herning continating colon but no incarcerated bowel. 9 mm calcification consistent w/ calculus in the urinary bladder HIDA Scan (08/02/2024): Gallbladder activity. Gallbladder ejection fraction 24%, normal 35% or greater Plan -No acute intervention, consider surgery consult #CT Abdominal Aortic Aneurysm, 3.9 cm LIkely secondary to tobacco use disorder Plan -outpatient F/U Health Maintenance: Disp: Pt is currently admitted to floors for further management of hyponatremia, awaiting continued improvement. FEN: cardiac DVT: on Eliquis 5 BID Code: Full code - The patient's plan was discussed with attending Dr. Joyce and senior residents Dr. Kassandra Alfaro MD PGY1 Internal Medicine
--- NOTE | 2024-08-03 23:31 | PC.NURSE ---
pt agitated and stated she is still in pain, reminded dilaudid given 20 mins ago and norco earlier around 2100. MD notified of pain, and will order med.
[2024-08-03] MEDS: HYDROmorphone INJ 2 MG/ML VIAL 0.25 MG IVP (23:39)
[2024-08-04] VITALS (13 sets, daily range): BP systolic 102–167; BP diastolic 48–91; PULSE 88–153; RESP 12–24; TEMP 36–36.7; O2SAT 93–99; BMI 29.6
[2024-08-04] MEDS: HYDROcodone/APAP 5/325 TABLET 1 TAB PO ×2 (04:09→19:07)
[2024-08-04] MEDS: HYDROmorphone INJ 2 MG/ML VIAL 1 MG IVP ×2 (04:56→09:19)
--- NOTE | 2024-08-04 05:02 | PC.NURSE ---
pt's hr 130-150's atrial fib, bp 102/74. pt c/o bladder and back pain, prn norco given. Dr. Villaseñor notified of HR, no new order. ordered to give dilaudid IV now.
--- NOTE | 2024-08-04 05:38 | PC.NURSE ---
pt sleeping, awaken to call of name and denies pain. HR 140-150's still afib, bp 114/69, and Dr. Villaseñor notified and ordered to increase Cardizem drip to 10 mg/hr and carried out.
--- NOTE | 2024-08-04 05:40 | PC.NURSE ---
Received call from Dr. Villaseñor to [facility] and he will order Amiodarone drip.
[2024-08-04] MEDS: AMIODARONE 150 MG IVPB 150 MG/100 ML BAG 600 MG IV (05:46)
[2024-08-04 05:51] LABS: Basophils # (Auto) 0.1 Thou/mm3 (0.0-0.2); Basophils % (Auto) 1 % (0-2.5); Eosinophils # (Auto) 0.2 Thou/mm3 (0.0-0.5); Eosinophils % (Auto) 2 % (0-10); Hematocrit 39.9 % (36.0-46.0); Hemoglobin 12.1 g/dL (12.0-16.0); Immature Granulocytes % (Auto) 0 % (0-0); Immature Granulocytes Auto 0.02 Thou/mm3 (0.00-0.00); Lymphocytes # (Auto) 2.5 Thou/mm3 (1.0-4.8); Lymphocytes % (Auto) 27 % (10-50); Mean Corpuscular HGB Conc 30.3 g/dl (31.0-37.0); Mean Corpuscular Hemoglobin 25.9 pg (25.0-35.0); Mean Corpuscular Volume 85 fL (80-100); Monocytes # (Auto) 1.1 Thou/mm3 (0.0-0.8); Monocytes % (Auto) 12 % (0-12); Neutrophils # (Auto) 5.4 Thou/mm3 (1.8-7.7); Neutrophils % (Auto) 59 % (37-80); Nucleated Red Blood Cell % 0 /100 WBC (0); Platelet Count 302 Thou/mm3 (140-440); RDW Standard Deviation 45.7 fL (36.4-46.3); Red Blood Count 4.68 Miln/mm3 (4.00-5.20); White Blood Count 9.2 Thou/mm3 (3.6-11.0)
[2024-08-04] MEDS: AMIODARONE 360 MG IVPB 360 MG/200 ML BAG 33.333 MG IV (05:57)
[2024-08-04 06:29] LABS: Alanine Aminotransferase 13 U/L (10-49); Albumin, Serum 4.2 gm/dL (3.4-4.8); Alkaline Phosphatase 118 U/L (46-116); Anion Gap 5 (7-16); BUN/Creatinine Ratio 16 Ratio (12-20); Bilirubin,Total 0.3 mg/dL (0.3-1.2); Blood Urea Nitrogen 13 mg/dL (9-23); Carbon Dioxide 33.6 mMol/L (20.0-31.0); Chloride 94 mMol/L (98-107); Creatinine (Component) 0.8 mg/dL (0.6-1.3); Estimated Creatinine Clearance 73.4 mL/min (>60); Globulin 2.1 gm/dL (2.3-3.5); Glucose 97 mg/dL (74-106); Magnesium 2.3 mg/dL (1.6-2.6); Osmolality,Calculated 266 (275-295); Phosphorous 2.7 mg/dL (2.4-5.1); Potassium 4.2 mMol/L (3.4-5.1); Sodium 133 mMol/L (136-145); Total Protein 6.3 gm/dL (5.7-8.2); eGFR > 60 See Note
[2024-08-04 06:45] LABS: Aspartate Amino Transferase 17 U/L (0-34)
[2024-08-04] MEDS: CHOLECALCIFEROL (Vitamin D3) 400 IU TABLET PO (08:02)
[2024-08-04] MEDS: APIXABAN 2.5 MG TABLET 5 MG PO ×2 (08:02→20:35)
[2024-08-04] MEDS: LEVOFLOXACIN/D5W 750MG IVPB 750 MG/150 ML BAG 100 MG IV (08:03)
[2024-08-04] MEDS: NICOTINE PATCH 7 MG/24 HR PATCH.TD24 TOP (08:03)
[2024-08-04] MEDS: TAMSULOSIN HCL 0.4 MG CAPSULE PO (08:03)
--- NOTE | 2024-08-04 11:24 | XR_ITS ---
Examination: CT abdomen and pelvis without contrast. Coronal 3-D reconstructions. Sagittal 2-D reconstructions. Date and time of exam:August 04, 2024 1503 hours Comparison July 31, 2024 INDICATIONS: History abdominal pain, 2 mm right renal calculus and abdominal aortic aneurysm on CT study July 31, 2024 CTDI: vol (mGy): 9.50 DLP: (mGycm): 524 Technique: Axial images of the abdomen have been obtained, 3 mm slice thickness Intravenous contrast material has not been administered. Low dose protocols were performed. One or more of the following dose reduction techniques were used; automated exposure control, adjustment of the mA and/or KV according to patient size, use of iterative reconstruction technique. Findings: Atelectasis left lower lobe Prominent retrocardiac gastric hernia Liver mildly irregular in contour 5 mm low-density left lobe liver lesion Spleen not enlarged No gallstones No pancreatic or adrenal mass Right renal arterial calcifications 1 mm upper pole right renal calculus Lower pole right renal cyst, 7.8 cm Mild bilateral renal parenchymal scar formation No hydronephrosis or ureteral calculi Infrarenal abdominal aortic aneurysm 3.9 x 4.1 cm Infraumbilical left pelvic wall hernia defect containing bowel but no incarcerated bowel Right infraumbilical hernia defect containing colon but no incarcerated bowel No bowel obstruction Bladder intact Advanced degenerative disc disease L4-L5 IMPRESSION: Primary hepatocellular disease Recommend hepatic sonography to assess the small liver lesion 1 mm nonobstructing right renal calculus Lower pole 7.8 cm right renal cyst Stable infrarenal abdominal aortic aneurysm Stable hernia defect containing bowel as above but no incarcerated bowel or bowel obstruction
[2024-08-04] MEDS: AMIODARONE 360 MG IVPB 360 MG/200 ML BAG 16.667 MG IV (12:06)
[2024-08-04] MEDS: FUROSEMIDE INJ 10 MG/ML VIAL 2 ML 20 MG IVP (12:10)
--- NOTE | 2024-08-04 13:02 | ESPR_ITS ---
<Statement entered by Tony Meeks MD - 08/04/24 14:55> Patient was seen and examined at the bedside. Patient was admitted and managed for hyponatremia and complicated UTI. Patient was found to have a bladder stone and urologist was consulted. Urology recommended cystoscopy as outpatient. Rapid response was called last night for A-fib with RVR as patient home medications diltiazem was not resumed. Initially patient was started on diltiazem drip after metoprolol pushes however patient was switched to amiodarone drip per protocol by the night team due to soft BP per Night team. Cardiology team recommended to give diltiazem CD1 20 x 1 now and start Cardizem CD120 tomorrow morning once amiodarone drip is completed and continue with that if blood pressure remains stable with MAP above 65. Patient was complaining of lower back pain therefore we ordered CT abdomen and pelvis without contrast to rule out any further kidney stones and increase Dilaudid to 1.5 mg. We are continuing antibiotic Levaquin 750 mg once a day for UTI. Given her Lasix 20 mg IV x 1 due to vascular congestion seen in her chest x-ray. Troponin I was negative. Sodium at 133. Correcting by itself. Salt tablets on hold. All labs and orders were reviewed. I saw and examined the patient, and I agree with current management stated by Dr Angelina MD,PGY1. Plan of care was discussed with the attending physician and resident physician. Disclaimer: Despite multiple revisions, due to the dictation software being used, the document bellow may not be free of grammatical errors including phonetic/typographic errors. However, this does not deter from our commitment to providing health care in the patient's best interest in mind. Dr. Constantino MD, PGY 2 Documentation for date of: 08/04/24 Subjective Subjective Interval history: Patient is 67 year old female with past medical history of HTN, HLD, COPD-not on home oxygen, w/ 40+ year tabacoo use, history of dysphagia, hx of major depression, GERD, hiatal hernia, esophageal strictures s/p dilation, hemorroids, and mixed urinary incontinence (on Myrbetriq 50 mg PO daily) w/ previous history of bladder stones (2019) who was initially admitted for hyponatremia, UTI, and found to have bladder and urter stones. Patient experienced a rapid in the evening shortly before discharge, thus discharge was held back. During rapid patient went into A-fib with RVR, oral home dose diltiazem given to patient, followed by metoprolol 2.5 mg IV push. Patient continued to be A-fib with RVR diltiazem drip was started. Overnight, overnight diltiazem drip switched to amnio drip due to low blood pressure. This morning patient stated she was still experiencing 10 out of 10 pain, Dilaudid increased to 1.5 mg IV push every 4 hours for costovertebral kidney stone pain. Exam Vital Signs Temp Pulse Resp BP Pulse Ox O2 Del Method O2 Flow Rate 96.8 F 88 19 107/66 96 Nasal Cannula 3 08/04/24 12:00 08/04/24 12:10 08/04/24 12:00 08/04/24 12:10 08/04/24 12:00 08/04/24 12:00 08/04/24 12:00 Narrative Exam General Appearance: Alert & Oriented X3, well-nourished female who is lying in bed in acute distress, 10/10 pain at costal vertebral angle. HEENT: Skull symmetrical and atraumatic. Conjunctivae pin and moist. Pupils equal, round, reactive to light and accommodation (PERRL). External ear without lesion or discharge. Straight, nares patient, mucosa pink, no discharge. Cardio: Normal Rate and Rhythm with S1 and S2 heart sounds. No murmurs or extra heart sounds auscultated. No bruits on carotid auscultation. No peripheral edema or cyanosis. Lungs: Symmetric with good expansion. Chest and back non-tender. Breath sounds vesicular without crackles, wheezing or rhonchi Abdomen: Non-tender, Non-distended, Normal Reactive Bowel Sounds Neuro: Alert, cooperative, oriented to person, place, and time. Speech clear. CN grossly intact. Upper motor strength 5/5 and Lower motor strength 5/5. Sensation intact. Objective Labs 08/04/24 04:10 08/04/24 04:10 Labs: Laboratory Results - last 24 hr 08/03/24 08/04/24 17:01 04:10 WBC 9.2 RBC 4.68 Hgb 12.1 Hct 39.9 MCV 85 MCH 25.9 MCHC 30.3 L RDW Std Deviation 45.7 Plt Count 302 Neut % (Auto) 59 Lymph % (Auto) 27 [place] % (Auto) 12 Eos % (Auto) 2 Baso % (Auto) 1 Neut # (Auto) 5.4 Lymph # (Auto) 2.5 [place] # (Auto) 1.1 H Eos # (Auto) 0.2 Baso # (Auto) 0.1 Immature Gran # (Auto) 0.02 H Absolute Nucleated RBC 0.00 Immature Gran % 0 Nucleated RBC % 0 Sodium 133 L Potassium 4.2 Chloride 94 L Carbon Dioxide 33.6 H Anion Gap 5 L BUN 13 Creatinine 0.8 Estim Creat Clear Calc 73.4 eGFR > 60 BUN/Creatinine Ratio 16 Glucose 97 Calculated Osmolality 266 L Calcium 9.0 Corrected Calcium 9.0 Phosphorus 2.7 Magnesium 2.0 2.3 Total Bilirubin 0.3 AST 17 ALT 13 Alkaline Phosphatase 118 H Troponin I < 0.020 Total Protein 6.3 Albumin 4.2 Globulin 2.1 L Albumin/Globulin Ratio 2.0 Quality Measures Quality Measures VTE prophylaxis Advance care planning discussed with:: patient Assessment & Plan Assessment Current Active Medications: Generic Name Dose Route Start Last Admin Trade Name Freq PRN Reason Stop Dose Admin Acetaminophen 650 mg 08/01/24 01:19 08/02/24 02:32 Acetaminophen 325 Mg Tablet PO 08/30/24 20:44 650 mg Q6H PRN Administration Pain 1-3 and Fever >100.3 Hydrocodone Bitart/Acetaminophen 1 tab 08/02/24 16:10 08/04/24 04:09 Hydrocodone/Apap 5/325 Tablet PO 08/07/24 16:09 1 tab Q4HR PRN Administration PAIN SCALE 4-6 (Moderate Apixaban 5 mg 08/01/24 09:00 08/04/24 08:02 Apixaban 2.5 Mg Tablet PO 08/31/24 08:59 5 mg BID NGA Administration Diltiazem HCl 120 mg 08/03/24 16:45 08/03/24 16:57 Diltiazem Cd 120 Mg Capcr PO 09/02/24 16:44 120 mg QDAY NGA Administration Hydromorphone HCl 1.5 mg 08/04/24 11:22 Hydromorphone Inj 2 Mg/Ml Vial IVP 08/07/24 16:09 Q4HR PRN PAIN SCALE 7-10 (Severe Levofloxacin/Dextrose 750 mg in 150 mls @ 100 mls/hr 08/02/24 10:30 08/04/24 08:03 Levaquin Ivpb IV 08/09/24 10:29 100 mls/hr QDAY NGA Administration Amiodarone HCl/Dextrose 360 mg in 200 mls @ 16.667 mls/hr 08/04/24 05:37 08/04/24 12:06 Nexterone Ivpb IV 08/05/24 05:36 16.667 mls/hr .Q12H NGA Administration Ketorolac Tromethamine 15 mg 08/02/24 10:02 Ketorolac Inj 30 Mg/Ml Vial IVP 08/07/24 10:01 Q6HR PRN Breakthrough Pain Lidocaine 1 patch 08/01/24 18:11 08/02/24 08:15 Lidocaine 5% 1 Patch TOP 08/31/24 18:10 1 patch UD PRN Administration backPain Protocol Nicotine 7 mg 08/01/24 09:00 08/04/24 08:03 Nicotine Patch 7 Mg/24 Hr Patch.Td24 TOP 08/31/24 08:59 7 mg QDAY NGA Administration Sodium Chloride 1 gm 08/01/24 22:15 08/02/24 00:09 Sodium Chloride 1 Gm Tablet PO 08/31/24 22:14 1 gm BID NGA Administration Tamsulosin HCl 0.4 mg 08/02/24 09:00 08/04/24 08:03 Tamsulosin Hcl 0.4 Mg Capsule PO 09/01/24 08:59 0.4 mg QDAY NGA Administration Vitamin D 400 iu 08/03/24 09:00 08/04/24 08:02 Cholecalciferol (Vitamin D3) 400 Iu Tablet PO 09/02/24 08:59 400 iu QDAY NGA Administration Plan Patient is 67 year old female with past medical history of HTN, HLD, COPD-not on home oxygen, w/ 40+ year tabacoo use, history of dysphagia, hx of major depression, GERD, hiatal hernia, esophageal strictures s/p dilation, hemorroids, and mixed urinary incontinence (on Myrbetriq 50 mg PO daily) w/ previous history of bladder stones (2019) who was initially admitted for hyponatremia, UTI, and found to have bladder and urter stones. #Atrial Fibrillation, RVR, improved Patient switched from diltiazem drip to amiodarone drip overnight currently 2 and 3 bags. Patient's heart rate has been within normal rate. Ejection fraction 60 to 65% on previous echo on 08/02/2024. CHADSVAs Score 2. Plan -Currently on Amio drip, on (2/3 bag). -After completion of Amio drip, please discontinue bag -(08/04/2024) one time dose of Diltiazem 120 mg PO -Restart home medication Diltiazem 120 mg PO on 08/05/2024. -Eliquis 5 mg BID -Keep K> 4 & Mg >2 -Holding Diltiazem home medication -Cardiology consulted, appreciate recommendations #Renal Calculi, Right Kidney-non hydronephrosis #Nephrolithiasis #Renal Cyst #Vesicular Calculi History of bladder stones s/p fragmentation on (03/12/2024) with previous hydrochlorothiazide use. Patient likely passing stone as pain increased to 10/10. Dr. Pedroza recommendation out patient cystoscopy. Plan: -Strain Urine -Tamulosin -Phenazophyridine 100 mg PO TIDWM PRN -Pain Management (Tylenol, Norc 5, and Dilaudid 1.5 mg IV Q4HR) -Urology Consulted, appreciate recommendations #Complicated UTI #Mild Leukocytosis Etiology: likely secondary to obstructive uropathy DDx: history of mixed incontinence and history of sling, thus underlying incontinence leading to UTI can not be excluded vs medcation side effects Diagnostics: UA Turbid, Blood 2+, Esterase +, WBC 40, bacteria + Urine Culture (08/02/2024): Proteus; senstive to levofloxacin & Cefotaxime Plan -Started (08/02/2024--08/09/2024) Levofloxacin 750 mg QDay -Ceftrixone (07/31/2024-08/02/2024) #Sever Hyponatremia, Hypo-osmolar, Hypovolemic, Resolved. 08/02/2024: Per Dr. Guaman recommendations, Hyponatremia likely secondary to SIADH given Bupropion use for major depression in the setting of normal osmality on previous admissions and hyponatremia during that admission. Plan -No acute intervention #HTN Patient takes Lisinopril as home medication, currently holding as she is on Amio drip. Plan -Holding Home Medication Lisinopril 5 mg #Hyperlipidemia No hyerlipidemia medication listed, previously taking Atorvastatin per chart review from Dr. Figueroa. ASCVD Risk 13.4% Moderate to high intensity statin recommended. Diagnostics: --Lipid Panel (08/04/2024): Triglyceride 63, Cholesterol 177, LDL 124, HDL 40, Plan -Atorvastatin 40 mg HS #COPD Sandra has a past meical history of COPD no on oxygen on home. On trelegy and albuterol but not in COPD exacerbation. NO wheezing noted Plan -keep patient between 88%-92% spO2 if permitted given patient's past medical history of COPD -Consider adding Duonebs PRN #Primary Hepatocellular Disease Primary biliary cholangistis (PBC) can not be excluded as patient maybe taking ursodiol vs history of gallstones vs MASH Diagnostics: Abdomen US Negative for cholelithiasis. Gallbladder wall is thickened 0.43, consider HIDA or MRCP. Normal common bile duct. Liver normal size, fatty liver. Abdomen/Pelvis CT (07/31/2024): Primary hepatocellular disease, 2 mm right renal calculus, 7 cm right renal cyst , INfraumbical left hernia containing small bowel and right herning continating colon but no incarcerated bowel. 9 mm calcification consistent w/ calculus in the urinary bladder Plan -Consider GGT -No acute intervention #Tobacco Use Disorder Patient has a >40 year history Plan -Nicotine Patch Nga #KAMALJIT, likely intrinsic, resolved. #Abdominal Pain, Resolved #Asymptomatic Cholelithiasis #CT Abdominal Aortic Aneurysm, 3.9 cm Health Maintenance: Disp: Pt is currently admitted to floors for further management of Atrial Fibrillation, awaiting clinical improvement. FEN: cardiac, 1800 DVT: on Eliquis 5 BID Code: Full code - The patient's plan was discussed with attending Dr. Joyce and senior residents Dr. Kassandra Alfaro MD PGY1 Internal Medicine Attending Provider Attestation/Addendum I have discussed and was present for the essential components of the history, physical examination, diagnosis, and treatment plan with the resident. I agree with the patient's care as documented by the resident and amended herein by me. Mushtaq Joyce DO. I have discussed and was present for the essential components of the history, physical examination, diagnosis, and treatment plan with the resident. I agree with the patient's care as documented by the resident and amended herein by me. Mushtaq Joyce DO. Patient seen and evaluated in the AM. In short, the patient is a 67-year-old female with significant past medical history of hypertension, COPD not on home oxygen, hyperlipidemia, tobacco use, history of dysphagia and major depression, GERD, esophageal stricture status post dilations, hemorrhoids, urinary incontinence, history of bladder stones, has followed with Dr. Pedroza on the outpatient setting, who was admitted for hyponatremia, urinary tract infection complicated by atrial fibrillation with RVR. Overnight, rapid response was called for rapid heart rate, the patient went into atrial fibrillation with RVR, during this time, the patient had complaints of severe right flank pain which has been chronic over the last 3 weeks however intensified yesterday. Despite being restarted on her home diltiazem, her heart rate did improve with Dilaudid and a push of metoprolol tartrate 2.5 mg. Cardiology was initially consulted, who instructed the patient be placed on a diltiazem drip which was ordered however the patient was placed on amnio drip by the night team out of concern for soft blood pressure. Patient still on amnio drip today, per cardiology recommendations we did start the patient on her home dose diltiazem 120 mg every 12 hours and will discontinue amnio drip tomorrow. Past will continue Eliquis 5 mg twice daily and replete electrolytes as needed keeping potassium and magnesium greater than 4 and 2 respectively For the patient's urinary tract infection, urine cultures demonstrating MDR Proteus sensitive to levofloxacin which was started, presently levofloxacin 750 mg p.o. daily, patient was initially on ceftriaxone however due to resistance, was discontinued on 08/02. Patient also presented initially with an KAMALJIT which has resolved. Patient also has a history of kidney stones, we did an initial CT scan on arrival however due to severe flank pain yesterday we did repeat scan to assess for any new changes that may account for her increasing pain. The CT AP demonstrated primary hepatocellular disease, a 1 mm nonobstructing right renal calculus and continue to show the lower pole 7.8 cm right renal cyst which was noted previously to be benign. A stable infrarenal abdominal aortic aneurysm was also noted and a stable hernia defect containing bowel but no indications of incarceration were noted. Urology was consulted, Dr. Kasia who recommended treatment of the UTI, cystoscopy, laser stone fragmentation and evacuation however this will be done with the patient is off anticoagulants and scheduled on an outpatient basis through his office. Of note, the patient's daughters been at bedside mostly in the morning, he was not happy about this, she wants intervention here or wants the patient to be transferred however I did speak with her this morning on the situation and understands that it is highly unlikely. Patient is presently on Dilaudid which is helping however not completely clear on the etiology of the severe pain, may be the renal cyst. Of note, a small liver lesion was noted on repeat CT scan today measuring 5 mm in the left lobe, I will order a liver ultrasound to further characterize. For the patient's hyponatremia, the patient initially presented with a sodium level of 119 which has significantly improved, nephrology was initially consulted, suspect hyponatremia secondary to SIADH ADH in setting of bupropion use for major depression which is recommended to be discontinued at time of discharge. Patient was started on salt tabs however presently held due to sodium being in acceptable range, presently 133 today. For the patient's thickened gallbladder wall it was initially seen on imaging, we did order a HIDA scan demonstrating gallbladder activity with an ejection fraction of 24% which is below normal. Although this document has been carefully reviewed, there may still be some phonetic and other typographical errors. These errors are purely grammatical due to imperfections in the software program and should not be construed in any way to compromise the substance of the patient's medical care during this visit.
[2024-08-04] MEDS: HYDROmorphone INJ 2 MG/ML VIAL 1.5 MG IVP ×2 (15:42→20:05)
[2024-08-04] MEDS: DILTIAZEM CD 120 MG CAPCR PO (17:16)
--- NOTE | 2024-08-04 18:13 | XR_ITS ---
Examination: Abdomen sonogram, Limited Date and time of exam: August 04, 2024 1850 hrs. Indications: Right upper abdominal pain beginning 3 weeks ago, CT abdomen pelvis study today 5 mm left lobe liver lesion Technique: Real-time barr scale transabdominal sonographic images of the upper abdomen obtained. Findings: Gallbladder not visualized Common bile duct 0.3 cm Pancreatic head 2.2 cm Liver 13.3 cm lobular contour fatty infiltration no liver lesion identified Normal hepatopedal portal venous flow Patent IVC Impression: No liver lesion noted
--- NOTE | 2024-08-04 19:20 | PC.NURSE ---
pt is having liver ultrasound.
[2024-08-04] MEDS: ATORVASTATIN CALCIUM 20 MG TABLET 40 MG PO (20:05)
[2024-08-05] VITALS: BP 131/64; PULSE 89; PULSE 90; RESP 21; TEMP 36.7; O2SAT 94
[2024-08-05] MEDS: HYDROcodone/APAP 5/325 TABLET 1 TAB PO ×2 (00:21→05:33)
[2024-08-05 00:22] VITALS: BP 131/64; PULSE 98
[2024-08-05] MEDS: AMIODARONE 360 MG IVPB 360 MG/200 ML BAG 16.667 MG IV (00:22)
[2024-08-05] MEDS: HYDROmorphone INJ 2 MG/ML VIAL 1.5 MG IVP ×2 (01:06→07:40)
[2024-08-05 04:00] VITALS: BP 145/63; PULSE 83; PULSE 86; RESP 12; TEMP 36.5; O2SAT 98
[2024-08-05 05:09] LABS: Basophils # (Auto) 0.1 Thou/mm3 (0.0-0.2); Basophils % (Auto) 1 % (0-2.5); Eosinophils # (Auto) 0.3 Thou/mm3 (0.0-0.5); Eosinophils % (Auto) 3 % (0-10); Hematocrit 36.2 % (36.0-46.0); Hemoglobin 11.4 g/dL (12.0-16.0); Immature Granulocytes % (Auto) 0 % (0-0); Immature Granulocytes Auto 0.03 Thou/mm3 (0.00-0.00); Lymphocytes % (Auto) 23 % (10-50); Mean Corpuscular HGB Conc 31.5 g/dl (31.0-37.0); Mean Corpuscular Hemoglobin 26.3 pg (25.0-35.0); Mean Corpuscular Volume 84 fL (80-100); Monocytes # (Auto) 1.1 Thou/mm3 (0.0-0.8); Monocytes % (Auto) 12 % (0-12); Neutrophils # (Auto) 5.4 Thou/mm3 (1.8-7.7); Neutrophils % (Auto) 61 % (37-80); Nucleated Red Blood Cell % 0 /100 WBC (0); Platelet Count 280 Thou/mm3 (140-440); RDW Standard Deviation 45.1 fL (36.4-46.3); Red Blood Count 4.33 Miln/mm3 (4.00-5.20); White Blood Count 8.8 Thou/mm3 (3.6-11.0)
[2024-08-05 05:33] VITALS: BP 145/63; PULSE 91
[2024-08-05] MEDS: DILTIAZEM CD 120 MG CAPCR PO (05:33)
[2024-08-05 05:37] LABS: Alanine Aminotransferase 13 U/L (10-49); Albumin, Serum 4.2 gm/dL (3.4-4.8); Albumin/Globulin Ratio 2.1 (1.2-2.2); Alkaline Phosphatase 114 U/L (46-116); Anion Gap 6 (7-16); Aspartate Amino Transferase 19 U/L (0-34); BUN/Creatinine Ratio 19 Ratio (12-20); Bilirubin,Total 0.2 mg/dL (0.3-1.2); Blood Urea Nitrogen 17 mg/dL (9-23); Calcium 9.3 mg/dL (8.3-10.6); Calcium (Corrected) 9.3 mg/dL (8.5-10.1); Chloride 94 mMol/L (98-107); Creatinine (Component) 0.9 mg/dL (0.6-1.3); Estimated Creatinine Clearance 65.2 mL/min (>60); Glucose 101 mg/dL (74-106); Magnesium 2.2 mg/dL (1.6-2.6); Osmolality,Calculated 267 (275-295); Phosphorous 4.2 mg/dL (2.4-5.1); Potassium 3.8 mMol/L (3.4-5.1); Sodium 133 mMol/L (136-145); Total Protein 6.2 gm/dL (5.7-8.2); eGFR > 60 See Note
[2024-08-05 06:00] VITALS: BMI 29.8
[2024-08-05 06:10] VITALS: PULSE 86; RESP 20; O2SAT 99
[2024-08-05 08:00] VITALS: BP 104/56; PULSE 82; PULSE 96; RESP 24; TEMP 36.3; O2SAT 93
[2024-08-05] MEDS: TAMSULOSIN HCL 0.4 MG CAPSULE PO (08:36)
[2024-08-05] MEDS: APIXABAN 2.5 MG TABLET 5 MG PO (08:36)
[2024-08-05] MEDS: CHOLECALCIFEROL (Vitamin D3) 400 IU TABLET PO (08:36)
[2024-08-05] MEDS: LEVOFLOXACIN/D5W 750MG IVPB 750 MG/150 ML BAG 100 MG IV (08:37)
--- NOTE | 2024-08-05 10:30 | PC.SS ---
SS met with patient and patient's daughter, July as well as patient's nurse Natanael and Dr. Willis at bedside. Patient's daughter was upset and expressed she wanted patient to transfer to [facility]. SS informed her that [facility] is not able to do a lateral transfer and that there has to be a reason for a transfer and meet criteria for higher level of care. July upset and stated I want her out of here, this staff here are all liars. Patient's daughter reported they were going to check patient out AMA. SS will stand by for further needs.
--- NOTE | 2024-08-05 10:33 | PD.HHPROG ---
Documentation for date of: 08/05/24 Subjective - Hospitalist Subjective Interval history: Patient was seen and evaluated this AM at around 8am after which the patient had recently received dilaudid 1.5mg IV at 7:40AM. Patient was somnolent, but easily arousable. She denied any chest pain, fevers, chills, nausea or vomiting. She mumbled that she has pain all over her body and rated it a 12-13 out of 10. Was notified by nursing that daughter would like to speak to physician regarding taking patient to outside hospital or transferring. Daughter, July, was called and she again emphasized that she would like to take her mother out of the hospital as she feels that her mother is not improved. Daughter stated that she would return to take her mother out of the hospital. Discussed the risks of leaving against medical advice including, but not limited to, overwhelming sepsis, permanent disability or sudden cardiac . Explained to daughter that patient had gone into Afib with RVR and remains on last bag of amiodarone IV that ends at noon. I also explained to daughter that patient is not ready for discharge as she is still dependent on IV pain medicine for pain control. Per nursing, patient has not been out of bed since Thursday. Daughter states she had called urology outpatient to arrange for cystoscopy, but was more flustered when they were not aware of patient info. Daughter and came to bedside at 10:28AM. GHADA Santoyo and KAILEE Koenig were present at time of discussion. Patient was much more awake and demanded papers to sign herself out. Explained that patient was on amiodarone drip again for control of heart rate. Patient stated that she was not getting any pain medicine and that we were liars. Explained again the risks of leaving against medical advice to patient, daughter and at bedside. Daugther stated she would take her mother to another hospital and had already brought the patient's oxygen tank. They verbalized understanding of the risks of leaving against medical advice as they had done it in the past. AMA papers signed by patient at 10:31AM. Review of Systems Review of Systems Systems Reviewed: All systems reviewed, normal except as documented Exam Vital Signs Temp Pulse Resp BP Pulse Ox O2 Del Method O2 Flow Rate 97.3 F 96 24 H 104/56 L 93 L Nasal Cannula 2 08/05/24 08:00 08/05/24 08:00 08/05/24 08:00 08/05/24 08:00 08/05/24 08:00 08/05/24 08:00 08/05/24 08:00 Narrative Gen: No acute distress HEENT: NCAT, PERRLOU, Sclera anicteric, conjunctiva noninjected, oral mucosa moist without erythema Neck: Supple, full range of motion, no LAD CV: RRR, no murmurs, rubs or gallops Resp: CTAB/L, no wheezing, rhonchi or rales GI: abdomen soft, bowel sounds noted, mild tenderness to palpation of suprapubic region, no guarding or rebound tenderness, no organomegaly Skin: clean, dry, no rashes, lesions or ecchymosis Ext: no clubbing, cyanosis, or edema Neuro: A&O x3, CN II- XII intact b/l, no focal neurological deficits Objective - Hospitalist Labs Diagram: 08/05/24 04:10 08/05/24 04:10 Labs: Laboratory Results - last 24 hr 08/05/24 04:10 WBC 8.8 RBC 4.33 Hgb 11.4 L Hct 36.2 MCV 84 MCH 26.3 MCHC 31.5 RDW Std Deviation 45.1 Plt Count 280 Neut % (Auto) 61 Lymph % (Auto) 23 [place] % (Auto) 12 Eos % (Auto) 3 Baso % (Auto) 1 Neut # (Auto) 5.4 Lymph # (Auto) 2.0 [place] # (Auto) 1.1 H Eos # (Auto) 0.3 Baso # (Auto) 0.1 Immature Gran # (Auto) 0.03 H Absolute Nucleated RBC 0.00 Immature Gran % 0 Nucleated RBC % 0 Sodium 133 L Potassium 3.8 Chloride 94 L Carbon Dioxide 33.0 H Anion Gap 6 L BUN 17 Creatinine 0.9 Estim Creat Clear Calc 65.2 eGFR > 60 BUN/Creatinine Ratio 19 Glucose 101 Calculated Osmolality 267 L Calcium 9.3 Corrected Calcium 9.3 Phosphorus 4.2 Magnesium 2.2 Total Bilirubin 0.2 L AST 19 ALT 13 Alkaline Phosphatase 114 Total Protein 6.2 Albumin 4.2 Globulin 2.0 L Albumin/Globulin Ratio 2.1 Assessment & Plan Assessment: Patient is 67 year old female with past medical history of HTN, HLD, COPD-not on home oxygen, w/ 40+ year tabacoo use, history of dysphagia, hx of major depression, GERD, hiatal hernia, esophageal strictures s/p dilation, hemorroids, and mixed urinary incontinence (on Myrbetriq 50 mg PO daily) w/ previous history of bladder stones (2019) who was initially admitted for hyponatremia, UTI, and found to have bladder and ureter stones. #Atrial Fibrillation, RVR, resolved Continues to be on amiodarone drip bag 10/24, to end at noon. HR now rate controlled Ejection fraction 60 to 65% on previous echo on 08/02/2024. CHADSVAs Score 2. Plan - transition to cardizem 120mg CD PO daily after discontinuation of amiodarone drip -Eliquis 5 mg BID -Keep K> 4 & Mg >2 -Cardiology consulted, appreciate recommendations #2mm Right Renal calculus #Nephrolithiasis # 7 cm Right Renal Cyst # 9mm calculus in urinary bladder History of bladder stones s/p fragmentation on (03/12/2024) with previous hydrochlorothiazide use. Patient likely passing stone as pain increased to /10. Dr. Pedroza recommendation out patient cystoscopy. Plan: -Strain Urine -Tamulosin -Phenazophyridine 100 mg PO TIDWM PRN -Pain Managemen t (Tylenol, [place] 5mg/325mg , and Dilaudid 1.5 mg IV Q4HR) -Urology Consulted, recommends outpatient follow up #Proteus Mirabilis UTI #Mild Leukocytosis Etiology: likely secondary to obstructive uropathy DDx: history of mixed incontinence and history of sling, thus underlying incontinence leading to UTI can not be excluded vs medcation side effects Diagnostics: Ceftriaixone (07/31/2024-08/02/2024) UA Turbid, Blood 2+, Esterase +, WBC 40, bacteria + Urine Culture (08/02/2024): Proteus; senstive to levofloxacin & Cefotaxime Plan -Started (08/02/2024--08/09/2024) Levofloxacin 750 mg QDay #Sever Hyponatremia, Hypo-osmolar, Hypovolemic, Resolved. 08/02/2024: Per Dr. uGaman recommendations, Hyponatremia likely secondary to SIADH given Bupropion use for major depression in the setting of normal osmality on previous admissions and hyponatremia during that admission. Plan -No acute intervention #HTN Patient takes Lisinopril as home medication, currently holding as she is on Amio drip. Plan -Holding Home Medication Lisinopril 5 mg #Hyperlipidemia No hyerlipidemia medication listed, previously taking Atorvastatin per chart review from Dr. Figueroa. ASCVD Risk 13.4% Moderate to high intensity statin recommended. Diagnostics: --Lipid Panel (08/04/2024): Triglyceride 63, Cholesterol 177, LDL 124, HDL 40, Plan -Atorvastatin 40 mg HS #COPD Sandra has a past meical history of COPD no on oxygen on home. On trelegy and albuterol but not in COPD exacerbation. NO wheezing noted Plan -keep patient between 88%-92% spO2 if permitted given patient's past medical history of COPD -Consider adding Duonebs PRN #Primary Hepatocellular Disease Primary biliary cholangistis (PBC) can not be excluded as patient maybe taking ursodiol vs history of gallstones vs [facility] Diagnostics: Abdomen US Negative for cholelithiasis. Gallbladder wall is thickened 0.43, consider HIDA or MRCP. Normal common bile duct. Liver normal size, fatty liver. Abdomen/Pelvis CT (07/31/2024): Primary hepatocellular disease, 2 mm right renal calculus, 7 cm right renal cyst , INfraumbical left hernia containing small bowel and right herning continating colon but no incarcerated bowel. 9 mm calcification consistent w/ calculus in the urinary bladder Plan -Consider GGT -No acute intervention #Tobacco Use Disorder Patient has a >40 year history Plan -Nicotine Patch Nga #KAMALJIT, likely intrinsic, resolved. #Abdominal Pain, Resolved #Asymptomatic Cholelithiasis #Infrarenal Abdominal Aortic Aneurysm, 3.9 cm, stable Health Maintenance: Disp: As above, patient and family were persistent on leaving against medical advice. Explained to family that patient remains on amiodarone drip and dependent on IV dilaudid, thus is not stable for discharge. They stated that they do not see any improvement for the past 3 days and wish to take patient to another hospital. Patient and family were understanding of the risks of leaving against medical advice. FEN: cardiac, 1800 DVT: on Eliquis 5 BID Code: Full code Time Spent with Patient Time: Total time spent is greater than 50% in coordination of care (as documented) at patient's floor/unit and/or counseling patient: Time with patient: Greater than 35 minutes Reason for Continued Stay Reason for continued stay: IV pain control Quality Measures Quality Measures VTE prophylaxis Advance care planning discussed with:: patient and child
--- NOTE | 2024-08-05 10:56 | PC.NURSE ---
Pt. requested to sign AMA papers patient and family were explained the risks of leaving against medical advice by RN, manager social, and the doctor. The patient verbalized understanding of the risks but still wanted to leave AMA stating that staff is liars . Against Medical Advice forms were signed by the patient and the IVs were removed with no S/S of bleeding. Patient signed the forms at 1031 AM.
[2024-08-08 06:52] LABS: Osmolality, Urine* 287 mOsm/kg (50-1200)
== END 2024-08-05 10:31 | disposition left against medical advice (07) | DRG 644 ==
LOC: SERX 20:38 → SERHOLD 21:02 → S2NX 08-01 00:43
PROVIDERS: Internal Medicine Nephrology; Physician Assistant; Student in an Organized Health Care Education/Training Program; Admitting Provider Internal Medicine; Emergency Provider Emergency Medicine; PCP Family Medicine; Visit Provider Student in an Organized Health Care Education/Training Program
DX: E22.2 Syndrome of inappropriate secretion of antidiuretic hormone (principal); N17.9 Acute kidney failure, unspecified; N39.0 Urinary tract infection, site not specified; J44.9 Chronic obstructive pulmonary disease, unspecified; I10 Essential (primary) hypertension; E78.5 Hyperlipidemia, unspecified; I48.91 Unspecified atrial fibrillation; E86.1 Hypovolemia; I71.40 Abdominal aortic aneurysm, without rupture, unspecified; N20.0 Calculus of kidney; N28.1 Cyst of kidney, acquired; B96.4 Proteus (mirabilis) (morganii) as the cause of diseases classified elsewhere; K42.9 Umbilical hernia without obstruction or gangrene; I35.8 Other nonrheumatic aortic valve disorders; F32.9 Major depressive disorder, single episode, unspecified; N39.46 Mixed incontinence; T43.295A Adverse effect of other antidepressants, initial encounter; F17.210 Nicotine dependence, cigarettes, uncomplicated; Z53.29 Procedure and treatment not carried out because of patient's decision for other reasons; K76.0 Fatty (change of) liver, not elsewhere classified; K76.9 Liver disease, unspecified; Z87.442 Personal history of urinary calculi; Z79.01 Long term (current) use of anticoagulants; Z79.82 Long term (current) use of aspirin; Z79.899 Other long term (current) drug therapy; Z79.51 Long term (current) use of inhaled steroids
CPT/HCPCS: 36415; 71045; 74176; 76705; 76770; 78227; 80048; 80053; 80061; 81001; 83690; 83735; 83880; 83935; 84100; 84155; 84295; 84300; 84484; 85025; 87077; 87086; 87186; 93005; 93306; 96361; 96365; 96372; 96375; 97162; 99285; A9537; J0283; J0696; J1643; J1940; J1956; J2270; J2405; J2805; J3475; J3490; J7030; A9270; J1644

== ENCOUNTER → 2024-09-20 | Outpatient (CLI) | payer OTHER, MEDICAID, SELFPAY | END | disposition home or self-care (01) | PROVIDERS: Referring Provider Urology; Visit Provider Urology | DX: N39.0 Urinary tract infection, site not specified (principal) | CPT/HCPCS: 87077; 87086; 87186 ==

== ENCOUNTER → 2024-09-20 | Outpatient (BNVA) | payer OTHER, MEDICAID, SELFPAY | END | disposition home or self-care (01) | PROVIDERS: PCP Family Medicine; Referring Provider Family Medicine; Visit Provider Urology | DX: N20.0 Calculus of kidney (principal); N39.0 Urinary tract infection, site not specified; N28.1 Cyst of kidney, acquired; I10 Essential (primary) hypertension; E78.5 Hyperlipidemia, unspecified; I48.91 Unspecified atrial fibrillation; F17.210 Nicotine dependence, cigarettes, uncomplicated | CPT/HCPCS: 81003; 99212; G0463 ==

== ENCOUNTER → 2024-11-29 | Outpatient (CLI) | payer MEDICARE, MEDICAID, SELFPAY ==
--- NOTE | 2024-11-29 | XR_ITS ---
Examination: Thoracic spine 3 views Technique one AP lateral coned lateral upper dorsal spine 3 views Exam date and time: November 29, 2024 1202 hrs. Comparison October 16, 2023 Indications: Patient fell 3 weeks ago with injury to the back, upper back pain, back surgery 4 months ago. Findings: Severe osteopenia Severe compression fracture T6, reduction in height 80% Kyphoplasty involving compressed T3 vertebral body No fabiola cortical bone destruction Impression: CT scan thoracic spine without contrast follow-up would best assess acuity of the compression fracture T6 vertebral body
== END | disposition home or self-care (01) ==
LOC: CDIM 10:58
PROVIDERS: PCP Family Medicine; Referring Provider Family Medicine; Visit Provider Family Medicine
DX: S29.9XXA Unspecified injury of thorax, initial encounter (principal); W19.XXXA Unspecified fall, initial encounter
CPT/HCPCS: 72072

== ENCOUNTER → 2024-12-13 | Outpatient (CLI) | payer MEDICARE, MEDICAID, SELFPAY ==
--- NOTE | 2024-12-13 10:52 | XR_ITS ---
Examination: Thoracic spine 3 views Technique one AP lateral coned lateral upper dorsal spine 3 views Exam date and time: December 13, 2024 1037 hours Comparison November 29, 2024 INDICATIONS: History severe osteopenia, osteoporotic compressions T6 after falling one month ago FINDINGS: Severe osteopenia Thoracolumbar dextroscoliosis 19 degrees Kyphoplasty T4 Stable severe compression, chronic osteoporotic, T6 No interval acute thoracic fracture Kyphosis dorsal spine IMPRESSION: Severe osteopenia Stable severe chronic osteoporotic compressions T6
== END | disposition home or self-care (01) ==
PROVIDERS: PCP Family Medicine; Referring Provider Family Medicine; Visit Provider Family Medicine
DX: M85.80 Other specified disorders of bone density and structure, unspecified site (principal); M81.8 Other osteoporosis without current pathological fracture
CPT/HCPCS: 72072

== ENCOUNTER → 2025-03-10 | Outpatient (CLI) | payer MEDICARE, MEDICAID, SELFPAY ==
[2025-03-10 10:31] LABS: Alanine Aminotransferase 18 U/L (10-49); Albumin, Serum 4.3 gm/dL (3.4-4.8); Albumin/Globulin Ratio 2.2 (1.2-2.2); Alkaline Phosphatase 155 U/L (46-116); Anion Gap 7 (7-16); Aspartate Amino Transferase 19 U/L (0-34); BUN/Creatinine Ratio 10 Ratio (12-20); Bilirubin,Total 0.3 mg/dL (0.3-1.2); Blood Urea Nitrogen 12 mg/dL (9-23); Calcium 9.6 mg/dL (8.3-10.6); Calcium (Corrected) 9.6 mg/dL (8.5-10.1); Carbon Dioxide 29.2 mMol/L (20.0-31.0); Chloride 104 mMol/L (98-107); Creatinine (Component) 1.2 mg/dL (0.6-1.3); Globulin 2.0 gm/dL (2.3-3.5); Glucose 91 mg/dL (74-106); Osmolality,Calculated 279 (275-295); Potassium 3.9 mMol/L (3.4-5.1); Sodium 140 mMol/L (136-145); Total Protein 6.3 gm/dL (5.7-8.2); eGFR 49 See Note
== END | disposition home or self-care (01) ==
LOC: COPL 09:14
PROVIDERS: PCP Family Medicine; Referring Provider Family Medicine; Visit Provider Family Medicine
DX: I10 Essential (primary) hypertension (principal); I48.20 Chronic atrial fibrillation, unspecified; K21.9 Gastro-esophageal reflux disease without esophagitis; M81.0 Age-related osteoporosis without current pathological fracture; Z79.890 Hormone replacement therapy
CPT/HCPCS: 36415; 80053